=== PATIENT | female | born 1945 | race Caucasian/White ===

== ENCOUNTER 2016-07-04 08:49 | Emergency (ER) | payer MEDICARE ==
[~2016-07-04] VITALS: Ht 167.6 cm; Wt 90.7 kg
--- NOTE | 2016-07-04 08:53 | NUR ---
Pt bbra from home for left knee pain s/p fall this am. no loc or other trauma . VSS. Awaiting md order.
[2016-07-04] MEDS ORDERED: ONDANSETRON 4 MG TAB.RAPDIS ONE (09:04)
[2016-07-04] MEDS ORDERED: HYDROCODONE/APAP 5/325MG 1 EACH TABLET ONE (09:04)
--- NOTE | 2016-07-04 09:14 | NUR ---
VACUUM DRIER TENDER AT BEDSIDE
[2016-07-04] MEDS ORDERED: HYDROCODONE/APAP 5/325MG 1 EACH TABLET PO ONE (09:30)
[2016-07-04] MEDS ORDERED: ONDANSETRON 4 MG TAB.RAPDIS SL ONE (09:30)
[2016-07-04 10:48] VITALS: BP 135/68
--- NOTE | 2016-07-04 10:48 | NUR ---
Patient discharged to home in stable condition. Written and verbal after care instructions given. Patient verbalizes understanding of instruction.
== END 2016-07-04 10:48 | disposition home or self-care (01) ==
LOC: ER 08:51
DX: M25.562 Pain in left knee (principal); M25.561 Pain in right knee; M25.551 Pain in right hip; M25.552 Pain in left hip; E03.9 Hypothyroidism, unspecified; E78.5 Hyperlipidemia, unspecified; I10 Essential (primary) hypertension; J45.909 Unspecified asthma, uncomplicated; Z86.73 Personal history of transient ischemic attack (TIA), and cerebral infarction without residual deficits; Z88.6 Allergy status to analgesic agent; W01.0XXA Fall on same level from slipping, tripping and stumbling without subsequent striking against object, initial encounter; Y92.091 Bathroom in other non-institutional residence as the place of occurrence of the external cause; Y93.01 Activity, walking, marching and hiking; Y99.8 Other external cause status
CPT/HCPCS: 73502; 73503; 73564 ×2; 99284; A4606; Q0162; 73510-TC; Z7610

== ENCOUNTER 2022-01-15 09:07 | Inpatient (IN) | payer BC, MEDICARE ==
[~2022-01-15] VITALS: Ht 165.1 cm; Wt 111.6 kg
--- NOTE | 2022-01-15 09:13 | NUR ---
DR JEWELL W/ PT FOR ANASTASIYAAL
[2022-01-15] MEDS ORDERED: HYDROCODONE/APAP 10/325MG TABLET ONE ×2 (09:18→11:53)
[2022-01-15] MEDS ORDERED: HYDROCODONE/APAP 10/325MG TABLET PO ONE (09:30)
--- NOTE | 2022-01-15 09:34 | NUR ---
REVENUE INVESTIGATOR AT BEDSIDE FOR XRAY
[2022-01-15] MEDS ORDERED: MORPHINE SULFATE INJ 2 MG/ML DISP.SYRIN ONE (11:53)
[2022-01-15] MEDS ORDERED: MORPHINE SULFATE INJ 2 MG/ML DISP.SYRIN IV ONE (12:00)
--- NOTE | 2022-01-15 12:15 | NUR ---
COVID SWAB DONE AND SENT TO LAB
[2022-01-15] MEDS ORDERED: ALPR1TAB7 PO (12:23)
[2022-01-15] MEDS ORDERED: BUPR-54 PO (12:23)
[2022-01-15] MEDS ORDERED: BUPR1PAT23 TP (12:23)
[2022-01-15] MEDS ORDERED: ESCI20TA PO (12:23)
[2022-01-15] MEDS ORDERED: ASPI-992 PO (12:23)
[2022-01-15] MEDS ORDERED: ESZO3TAB39 PO (12:23)
[2022-01-15] MEDS ORDERED: DAPA10TA PO (12:23)
[2022-01-15] MEDS ORDERED: SACU1TAB PO (12:23)
[2022-01-15] MEDS ORDERED: GABA300C PO (12:23)
[2022-01-15] MEDS ORDERED: OMEP10CA5 PO (12:23)
[2022-01-15] MEDS ORDERED: TOPI100T PO (12:23)
[2022-01-15] MEDS ORDERED: ALBU6.7H9 INH (12:23)
[2022-01-15] MEDS ORDERED: LEVO150T8 PO (12:23)
[2022-01-15] MEDS ORDERED: TOPI50TA PO (12:23)
[2022-01-15] MEDS ORDERED: OXYC1TAB12 PO (12:23)
[2022-01-15] MEDS ORDERED: METO25TA4 PO (12:23)
[2022-01-15] MEDS ORDERED: ATOR80TA PO (12:23)
--- NOTE | 2022-01-15 12:33 | NUR ---
[facility] CALLED TESTER OPERATOR PAGED.
[2022-01-15 12:43] LABS: BASOPHILS % (AUTO) 0.4 % (0.0-2.0); EOSINOPHILS % (AUTO) 1.8 % (0.0-6.0); HEMATOCRIT 41 % (33-45); HEMOGLOBIN 12.9 g/dL (11.5-14.8); LYMPHOCYTES # (AUTO) 1.5 K/uL (0.8-4.8); LYMPHOCYTES % (AUTO) 22.7 % (20.0-44.0); MEAN CORPUSCULAR HGB CONC 32 g/dl (31.0-36.0); MEAN CORPUSCULAR VOLUME 101 fL (82-100); MONOCYTES # (AUTO) 1.3 K/uL (0.1-1.30); MONOCYTES % (AUTO) 19.9 % (2.0-12.0); NEUTROPHILS # (AUTO) 3.6 K/uL (1.8-8.9); NEUTROPHILS % (AUTO) 55.2 % (43.0-81.0); PLATELET COUNT (AUTO) 79 K/uL (150-450); RED BLOOD CELL COUNT(AUTO) 4.06 MIL/uL (4.0-5.2); WHITE BLOOD COUNT (AUTO) 6.5 K/uL (4.3-11.0)
--- NOTE | 2022-01-15 12:50 | NUR ---
DR JEWELL SPEAKING W/ DR. MONREAL
[2022-01-15 12:54] LABS: CALCIUM, SERUM 8.8 mg/dL (8.5-10.1); CREATININE 1.2 mg/dL (0.6-1.3); POTASSIUM 4.6 mmol/L (3.5-5.1)
[2022-01-15] MEDS ORDERED: Z GUARD REMEDY 4 OZ OINT TP PRN (13:30)
[2022-01-15] MEDS ORDERED: ONDANSETRON HCL/PF 4 MG/2 ML VIAL IVP PRN (13:30)
[2022-01-15] MEDS ORDERED: ACETAMINOPHEN 325 MG TABLET PO PRN (13:30)
[2022-01-15] MEDS ORDERED: MAG HYDROX/AL HYDROX/SIMETH 30 ML UDC PO PRN (13:30)
[2022-01-15] MEDS ORDERED: MAGNESIUM HYDROXIDE 30 ML UDC PO PRN (13:30)
--- NOTE | 2022-01-15 15:05 | NUR ---
CALLED [facility] [phone] X [phone] ADMISS[address] CLERK [address] FARIA.
[2022-01-15] MEDS ORDERED: Medication Not On Formulary EA (Oxycodone Hcl/Acetaminophen (Oxycodone-Apap 10-325 Mg Ta PO PRN (15:30)
[2022-01-15] MEDS ORDERED: ALBUTEROL FS 2.5 MG/3 ML VIAL.NEB NEB PRN (15:30)
[2022-01-15] MEDS ORDERED: HYDROCODONE/APAP 5/325MG TABLET ONE (16:57)
[2022-01-15] MEDS: HYDROCODONE/APAP 5/325MG TABLET PO PRN (17:00)
--- NOTE | 2022-01-15 17:43 | NUR ---
CALLED [facility] [phone] [facility] [address] GERARD BOURGEOIS SPEAKING WITH DR JEWELL.
--- NOTE | 2022-01-15 17:54 | NUR ---
room assigned 321.2, admitting aware
--- NOTE | 2022-01-15 18:32 | NUR ---
report given to estela valencia for xander.
--- NOTE | 2022-01-15 19:01 | NUR ---
PT TRANSFERRED TO 321 VIA GURNEY. WARM HANDOFF GIVEN TO RN ASSIGNED.
[2022-01-15] MEDS: MORPHINE SULFATE INJ 2 MG/ML DISP.SYRIN IV PRN (19:25)
--- NOTE | 2022-01-15 19:30 | NUR ---
MS RN OPENING NOTE RECEIVED PATIENT IN BED; AWAKE, ALERT AND ORIENTED X 3. ON ROOM AIR; TOLERATING WELL. BREATHING EVEN AND NONLABORED. NOT IN ANY FORM OF RESPIRATORY DISTRESS. DENIES ANY PAIN OR DISCOMFORT AT THIS TIME. WITH IV ACCESS AT LEFT ANTECUBITAL 20G; PATENT, INTACT AND SALINE LOCKED. ABLE TO MAKE NEEDS KNOWN. SAFETY PRECAUTIONS IMPLEMENTED: CALL LIGHT AND TABLE WITHIN REACH, SIDE RAILS UP X 2, BED IN LOWEST LOCKED POSITION. WILL CONTINUE TO MONITOR THROUGHOUT SHIFT.
[2022-01-15 20:00] VITALS: BP 145/65
[2022-01-15] MEDS: ATORVASTATIN 40 MG TABLET PO SCH (21:53)
[2022-01-15] MEDS: TOPIRAMATE 100 MG TABLET PO SCH (21:54)
[2022-01-15] MEDS: ENOXAPARIN SODIUM 40 MG/0.4 ML DISP.SYRIN SQ SCH (22:00)
[2022-01-15 22:48] VITALS: BP 145/65
[2022-01-16] MEDS: MORPHINE SULFATE INJ 2 MG/ML DISP.SYRIN IV PRN ×3 (00:11→21:50)
[2022-01-16 02:40] LABS: BAND % (MANUAL) 5 % (0.0-5.0); LYMPHOCYTES % (MANUAL) 35 % (16-48); NEUTROPHILS % (MANUAL) 55 (42-76)
[2022-01-16 02:41] LABS: BASOPHILS % (MANUAL) 0 % (0.0-2.0); EOSINOPHILS % (MANUAL) 0 % (0-4); MONOCYTES % (MANUAL) 5 % (0-11.0)
[2022-01-16 05:53] LABS: BASOPHILS % (AUTO) 0.2 % (0.0-2.0); EOSINOPHILS % (AUTO) 1.6 % (0.0-6.0); HEMATOCRIT 38 % (33-45); HEMOGLOBIN 12.2 g/dL (11.5-14.8); LYMPHOCYTES # (AUTO) 0.8 K/uL (0.8-4.8); LYMPHOCYTES % (AUTO) 10.8 % (20.0-44.0); MEAN CORPUSCULAR HGB CONC 32 g/dl (31.0-36.0); MEAN CORPUSCULAR VOLUME 101 fL (82-100); MONOCYTES # (AUTO) 3.2 K/uL (0.1-1.30); MONOCYTES % (AUTO) 41.2 % (2.0-12.0); NEUTROPHILS # (AUTO) 3.6 K/uL (1.8-8.9); NEUTROPHILS % (AUTO) 46.2 % (43.0-81.0); PLATELET COUNT (AUTO) 62 K/uL (150-450); RED BLOOD CELL COUNT(AUTO) 3.82 MIL/uL (4.0-5.2); WHITE BLOOD COUNT (AUTO) 7.7 K/uL (4.3-11.0)
[2022-01-16 06:24] LABS: CREATININE 1.1 mg/dL (0.6-1.3); MAGNESIUM 2.2 mg/dL (1.8-2.4); PHOSPHORUS 3.8 mg/dL (2.5-4.9); POTASSIUM 4.3 mmol/L (3.5-5.1)
--- NOTE | 2022-01-16 07:00 | NUR ---
MS RN CLOSING NOTE PATIENT IN BED; AWAKE, A/O X 3. STABLE ON ROOM AIR. BREATHING EQUAL AND UNLABORED. IN NO ACUTE DISTRESS. DENIES ANY PAIN OR DISCOMFORT AT THIS TIME. WITH IV ACCESS AT LEFT ANTECUBITAL 20G; PATENT, INTACT AND SALINE LOCKED. SAFETY PRECAUTIONS MAINTAINED: CALL LIGHT AND TABLE WITHIN REACH, SIDE RAILS UP X 2, BED IN LOWEST LOCKED POSITION. ENDORSED TO MORNING SHIFT FOR MAXIMILIANO.
[2022-01-16 08:00] VITALS: BP 123/70
[2022-01-16] MEDS: GABAPENTIN 300 MG CAPSULE PO SCH ×2 (09:00→13:00)
[2022-01-16] MEDS: ASPIRIN 325 MG TABLET PO SCH (09:46)
[2022-01-16] MEDS: LEVOTHYROXINE SODIUM 75 MCG TABLET PO SCH (09:46)
[2022-01-16] MEDS: BUPROPION XL 150 MG TAB.ER.24 PO SCH (09:47)
[2022-01-16] MEDS: ESCITALOPRAM OXALATE (10 MG) 10 MG TABLET PO SCH (09:47)
[2022-01-16] MEDS: PANTOPRAZOLE 40 MG TABLET.DR PO SCH (09:47)
[2022-01-16] MEDS: TOPIRAMATE 25 MG TABLET PO SCH (09:48)
[2022-01-16] MEDS: METOPROLOL SUCCINATE 25 MG TAB.SR.24H PO SCH (09:54)
[2022-01-16] MEDS: DAPAGLIFLOZIN PROPANEDIOL 5 MG TABLET PO SCH (09:54)
[2022-01-16] MEDS: SACUBITRIL/VALSARTAN 1 EACH TABLET PO SCH ×2 (09:56→18:06)
[2022-01-16 11:46] LABS: BAND % (MANUAL) 2 % (0.0-5.0); EOSINOPHILS % (MANUAL) 1 % (0-4); NEUTROPHILS % (MANUAL) 48 (42-76)
[2022-01-16 11:47] LABS: LYMPHOCYTES % (MANUAL) 9 % (16-48); MONOCYTES % (MANUAL) 40 % (0-11.0)
[2022-01-16 16:00] VITALS: BP 127/70
--- NOTE | 2022-01-16 19:20 | NUR ---
MS RN OPENING NOTE RECEIVED PATIENT IN BED; AWAKE, ALERT AND ORIENTED X 3. PATIEPATIENT . DENIES OF HAVING ANY PAIN OR DISCOMFORT AT THIS MOMENT. IV ACCESS IS AT LEFT ANTECUBITAL, # 20G; SL. FLUSHED WITH 10 CC OF NS, PATENT AND INTACT. PATIENT IS ABLE TO MAKE NEEDS KNOWN. LEFT LOWER LEG AND FOOT DRESS IS DRY, PATENT, AND INTACT. SAFETY PRECAUTIONS IMPLEMENTED: CALL LIGHT AND TABLE WITHIN REACH, SIDE RAILS UP X 2, BED IN LOWEST AND LOCKED POSITION. WILL CONTINUE TO MONITOR THE PATIENT THROUGHOUT SHIFT.
[2022-01-16 20:00] VITALS: BP 119/47
[2022-01-16] MEDS: ENOXAPARIN SODIUM 40 MG/0.4 ML DISP.SYRIN SQ SCH (20:00)
[2022-01-16 20:10] VITALS: BP 144/69
--- NOTE | 2022-01-16 20:43 | NUR ---
MS RN NOTE PATIENT HAS SCHEDULED MEDICATION LOVENOX 40 MG DUE AT 1999. PATIENT HAS LOW PLATELETS AT 62 (AM LAB RESULT ON 01/16). IT WAS 79 (AM LAB RESULT ON 01/15). PATIENT IS SCHEDULED FOR ORIF ON 01/18/2022. TEXT MD RADHA Panchal AND NOTIFIED HER PATIENT'S CONDITION. RECEIVED MD ORDER TO HOLD THE DOSE DUE TONIGHT. CHARGE NURSE, TRINITY, NOTIFIED.
[2022-01-16] MEDS: ATORVASTATIN 40 MG TABLET PO SCH (21:28)
[2022-01-16] MEDS: TOPIRAMATE 100 MG TABLET PO SCH (21:28)
[2022-01-16] MEDS: ZOLPIDEM TARTRATE 5 MG TABLET PO PRN (21:50)
[2022-01-16] MEDS ORDERED: LUNESTA 3 MG PO PRN (22:00)
[2022-01-17] MEDS: MORPHINE SULFATE INJ 2 MG/ML DISP.SYRIN IV PRN ×4 (04:49→21:40)
[2022-01-17 07:00] VITALS: BP 124/61
--- NOTE | 2022-01-17 07:08 | NUR ---
MS RN CLOSING NOTE PATIENT IS IN BED; AO X 3. PATIENT DENIES OF HAVING ANY PAIN OR DISCOMFORT AT THIS MOMENT. IV ACCESS IS AT LEFT ANTECUBITAL, # 20G; SL. FLUSHED WITH 10 CC OF NS, PATENT AND INTACT. PATIENT IS ABLE TO MAKE NEEDS KNOWN THROUGH THE SHIFT. LEFT LOWER LEG AND FOOT DRESS IS DRY, PATENT, AND INTACT. SAFETY PRECAUTIONS IMPLEMENTED: CALL LIGHT AND TABLE WITHIN REACH, SIDE RAILS UP X 2, BED IN LOWEST AND LOCKED POSITION. WILL ENDORSE THE NEXT SHIFT NURSE FOR CONTINUING PATIENT CARE.
[2022-01-17 07:56] LABS: BASOPHILS % (AUTO) 0.2 % (0.0-2.0); EOSINOPHILS % (AUTO) 1.1 % (0.0-6.0); HEMATOCRIT 37 % (33-45); LYMPHOCYTES # (AUTO) 1.1 K/uL (0.8-4.8); LYMPHOCYTES % (AUTO) 13.3 % (20.0-44.0); MEAN CORPUSCULAR HGB CONC 33 g/dl (31.0-36.0); MEAN CORPUSCULAR VOLUME 100 fL (82-100); MONOCYTES # (AUTO) 3.9 K/uL (0.1-1.30); MONOCYTES % (AUTO) 47.2 % (2.0-12.0); NEUTROPHILS # (AUTO) 3.1 K/uL (1.8-8.9); NEUTROPHILS % (AUTO) 38.2 % (43.0-81.0); PLATELET COUNT (AUTO) 61 K/uL (150-450); RED BLOOD CELL COUNT(AUTO) 3.68 MIL/uL (4.0-5.2); WHITE BLOOD COUNT (AUTO) 8.2 K/uL (4.3-11.0)
[2022-01-17 08:01] LABS: ALBUMIN 3.7 g/dL (3.4-5.0); BILIRUBIN,TOTAL 0.6 mg/dL (0.2-1.0); MAGNESIUM 2.2 mg/dL (1.8-2.4); PHOSPHORUS 2.9 mg/dL (2.5-4.9); POTASSIUM 4.3 mmol/L (3.5-5.1); TOTAL PROTEIN, SERUM 6.4 g/dL (6.4-8.2)
[2022-01-17] MEDS: DAPAGLIFLOZIN PROPANEDIOL 5 MG TABLET PO SCH (09:00)
[2022-01-17] MEDS: GABAPENTIN 300 MG CAPSULE PO SCH ×5 (09:00→17:29)
[2022-01-17] MEDS: LEVOTHYROXINE SODIUM 75 MCG TABLET PO SCH (10:46)
[2022-01-17] MEDS: ASPIRIN 325 MG TABLET PO SCH (11:07)
[2022-01-17] MEDS: ESCITALOPRAM OXALATE (10 MG) 10 MG TABLET PO SCH (11:07)
[2022-01-17] MEDS: METOPROLOL SUCCINATE 25 MG TAB.SR.24H PO SCH (11:07)
[2022-01-17] MEDS: TOPIRAMATE 25 MG TABLET PO SCH (11:08)
[2022-01-17] MEDS: PANTOPRAZOLE 40 MG TABLET.DR PO SCH (11:08)
[2022-01-17] MEDS: BUPROPION XL 150 MG TAB.ER.24 PO SCH (11:08)
[2022-01-17] MEDS: SACUBITRIL/VALSARTAN 1 EACH TABLET PO SCH ×2 (11:09→16:49)
[2022-01-17] MEDS: HYDROCODONE/APAP 5/325MG TABLET PO PRN ×2 (11:27→16:45)
[2022-01-17 12:42] LABS: LYMPHOCYTES % (MANUAL) 10 % (16-48); MONOCYTES % (MANUAL) 44 % (0-11.0); NEUTROPHILS % (MANUAL) 46 (42-76)
--- NOTE | 2022-01-17 19:05 | NUR ---
MS RN OPENING NOTE PATIENT IS LYING IN BED; AWAKE, ALERT AND ORIENTED X 3. PATIENT DENIES OF HAVING ANY PAIN OR DISCOMFORT AT THIS MOMENT. IV ACCESS IS AT LEFT ANTECUBITAL, # 20G; SL. FLUSHED WITH 10 CC OF NS, PATENT AND INTACT. LEFT LOWER LEG AND FOOT DRESS IS DRY, PATENT, AND INTACT. EDUCATED THE PATIENT THAT SHE IS GOING TO BE ON NPO AFTER MIDNIGHT FOR TOMORROW'S SCHEDULED SURGERY. PATIENT VERBALIZED UNDERSTANDING. PER CHANGE SHIFT REPORT, PATIENT'S CONSENT HAS NOT BEEN SIGNED BECAUSE PATIENT'S DAUGHTER, SARAH, WANTED TO KNOW FURTHER DETAILS ABOUT THE SURGERY. ACCORDING TO DAY SHIFT NURSE, SARAH STATED SHE LIVED CLOSELY AND WOULD COME TO VISIT HER MOTHER TOMORROW MORNING. SAFETY PRECAUTIONS IMPLEMENTED: CALL LIGHT AND TABLE WITHIN REACH, SIDE RAILS UP X 2, BED IN LOWEST AND LOCKED POSITION. WILL CONTINUE TO MONITOR THE PATIENT THROUGHOUT SHIFT.
--- NOTE | 2022-01-17 19:34 | NUR ---
REF: Consent Spoke with Patient's daughter Cassie who stated that she got a call from Lacey Elliott telling her that her Mother will have surgery but that is all. Cassie wants to be called at [phone] and explained the details before the consent is signed. She said she lives very close by and can be here early in the morning.
[2022-01-17] MEDS: ENOXAPARIN SODIUM 40 MG/0.4 ML DISP.SYRIN SQ SCH (20:00)
--- NOTE | 2022-01-17 20:15 | NUR ---
MS RN NOTE PATIENT HAS SCHEDULED MEDICATION LOVENOX 40 MG DUE AT 1999. PATIENT HAS LOW PLATELETS AT 61 (AM LAB RESULT ON 01/17). IT WAS 62 (AM LAB RESULT ON 01/16). PATIENT IS SCHEDULED FOR ORIF ON 01/18/2022. TEXT MD RADHA Panchal AND NOTIFIED HER PATIENT'S CONDITION. RECEIVED MD ORDER TO HOLD THE DOSE DUE TONIGHT. CHARGE NURSE, TRINITY, NOTIFIED.
[2022-01-17 21:04] VITALS: BP 109/51
[2022-01-17] MEDS: ZOLPIDEM TARTRATE 5 MG TABLET PO PRN (21:39)
[2022-01-17] MEDS: TOPIRAMATE 100 MG TABLET PO SCH (21:39)
[2022-01-17] MEDS: ATORVASTATIN 40 MG TABLET PO SCH (21:39)
[2022-01-18] VITALS (7 sets, daily range): BP systolic 104–146; BP diastolic 41–77
[2022-01-18] MEDS: MORPHINE SULFATE INJ 2 MG/ML DISP.SYRIN IV PRN ×2 (05:49→16:45)
[2022-01-18 06:05] LABS: BASOPHILS % (AUTO) 0.2 % (0.0-2.0); EOSINOPHILS % (AUTO) 0.8 % (0.0-6.0); HEMATOCRIT 34 % (33-45); LYMPHOCYTES # (AUTO) 1.2 K/uL (0.8-4.8); LYMPHOCYTES % (AUTO) 13.2 % (20.0-44.0); MEAN CORPUSCULAR HGB CONC 32 g/dl (31.0-36.0); MEAN CORPUSCULAR VOLUME 101 fL (82-100); MONOCYTES # (AUTO) 4.4 K/uL (0.1-1.30); MONOCYTES % (AUTO) 50.5 % (2.0-12.0); NEUTROPHILS # (AUTO) 3.1 K/uL (1.8-8.9); NEUTROPHILS % (AUTO) 35.3 % (43.0-81.0); PLATELET COUNT (AUTO) 59 K/uL (150-450); WHITE BLOOD COUNT (AUTO) 8.8 K/uL (4.3-11.0)
[2022-01-18 06:22] LABS: ALBUMIN 3.3 g/dL (3.4-5.0); BILIRUBIN,TOTAL 0.4 mg/dL (0.2-1.0); MAGNESIUM 2.1 mg/dL (1.8-2.4); PHOSPHORUS 3.2 mg/dL (2.5-4.9); POTASSIUM 4.4 mmol/L (3.5-5.1); TOTAL PROTEIN, SERUM 6.2 g/dL (6.4-8.2)
--- NOTE | 2022-01-18 07:00 | NUR ---
MS RN OPENING NOTES: RECEIVED PATIENT IN BED AWAKE, ALERT AND ORIENTED X 4. NO SOB OR CARDIAC DISTRESS NOTED, DENIES PAIN AT THIS TIME. IV ACCESS ON LAC GAUGE 20 PATENT, INTACT AND SL. MAINTAINED NPO. SAFETY MEASURES MAINTAINED: BED LOCKED AND IN LOWEST POSITION, SIDE RAILS UP X 3, CALL LIGHT AND BED SIDE TABLE IN EASY REACH AND WILL MONITOR PT ACCORDINGLY.
--- NOTE | 2022-01-18 07:09 | NUR ---
MS RN CLOSING NOTE PATIENT IS IN BED; AO X 3. PATIENT DENIES OF HAVING ANY PAIN OR DISCOMFORT AT THIS MOMENT. IV ACCESS IS AT LEFT ANTECUBITAL, # 20G; SL. FLUSHED WITH 10 CC OF NS, PATENT AND INTACT. PATIENT IS ABLE TO MAKE NEEDS KNOWN THROUGH THE SHIFT. LEFT LOWER LEG AND FOOT DRESS IS DRY, PATENT, AND INTACT. CONSENT FORMS FOR SURGERY ARE IN THE CHART READY TO BE SIGNED BY THE PATIENT / HER DAUGHTER. SAFETY PRECAUTIONS IMPLEMENTED: CALL LIGHT AND TABLE WITHIN REACH, SIDE RAILS UP X 2, BED IN LOWEST AND LOCKED POSITION. WILL ENDORSE THE NEXT SHIFT NURSE FOR CONTINUING PATIENT CARE.
[2022-01-18 08:23] LABS: BAND % (MANUAL) 2 % (0.0-5.0); LYMPHOCYTES % (MANUAL) 14 % (16-48); MONOCYTES % (MANUAL) 50 % (0-11.0); NEUTROPHILS % (MANUAL) 34 (42-76)
[2022-01-18] MEDS: LEVOTHYROXINE SODIUM 75 MCG TABLET PO SCH (09:00)
[2022-01-18] MEDS: FARXIGA 10 MG PO SCH (09:00)
[2022-01-18] MEDS: GABAPENTIN 300 MG CAPSULE PO SCH ×3 (09:00→17:09)
[2022-01-18] MEDS: ASPIRIN 325 MG TABLET PO SCH (09:00)
[2022-01-18] MEDS: TOPIRAMATE 25 MG TABLET PO SCH (09:00)
[2022-01-18] MEDS: ESCITALOPRAM OXALATE (10 MG) 10 MG TABLET PO SCH (09:00)
[2022-01-18] MEDS: METOPROLOL SUCCINATE 25 MG TAB.SR.24H PO SCH (09:00)
[2022-01-18] MEDS: PANTOPRAZOLE 40 MG TABLET.DR PO SCH (09:00)
[2022-01-18] MEDS: SACUBITRIL PO SCH ×2 (09:00→17:12)
[2022-01-18] MEDS: VALSARTAN PO SCH ×2 (09:00→17:12)
[2022-01-18] MEDS: BUPROPION XL 150 MG TAB.ER.24 PO SCH (09:00)
--- NOTE | 2022-01-18 09:56 | NUR ---
RN NOTES: MORNING MEDS NOT GIVEN, PT ON NPO FOR SURGERY.
[2022-01-18] MEDS ORDERED: BUPIVACAINE 0.5 % PF 150 MG/30 ML VIAL ONE (11:21)
[2022-01-18] MEDS ORDERED: LIDOCAINE 1% INJ 50 ML MDV IJ ONE (11:21)
[2022-01-18] MEDS ORDERED: VANCOMYCIN 1 GM VIAL ONE (11:21)
--- NOTE | 2022-01-18 12:35 | NUR ---
RN NOTES: PATIENT WAS PICKED UP GOING TO SURGERY, PATIENT STABLE. ACCOMPANIED BY OR NURSE AND FAMILY. PT LEFT THE UNIT STABLE.
[2022-01-18] MEDS ORDERED: FENTANYL PF 100MCG/2ML AMPUL ONE ×3 (12:47→15:24)
[2022-01-18] MEDS ORDERED: ROCURONIUM BROMIDE 50 MG/5 ML ONE (12:47)
[2022-01-18] MEDS ORDERED: GLYCOPYRROLATE 0.2 MG/ML VIAL ONE (12:50)
[2022-01-18] MEDS ORDERED: DEXAMETHASONE SOD PHOSPHATE 4 MG/ML VIAL ONE (12:50)
[2022-01-18] MEDS ORDERED: SUCCINYLCHOLINE CHLORIDE 20 MG/ML VIAL ONE (12:50)
--- NOTE | 2022-01-18 13:00 | NUR ---
RN NOTES: DUE MEDS @1300 NOT GIVEN PT CURRENTLY ON OPERATING ROOM.
--- NOTE | 2022-01-18 16:25 | NUR ---
RN NOTES: S/P LEFT ANKLE ORIF. PATIENT ACCOMPANIED BY RN CAT AND FAMILY VIA BED. PT ALERT AND ORIENTED X 4 AND NO SOB OR CARDIAC DISTRESS NOTED. VS WNL. NOTED WITH CEMENT LEFT FOOT AND COVERED WITH GHISLAINE WRAP WITH GOOD CAPILLARY REFILL PT ABLE TO MOVE TOES FREELY. ORDERS NOTED: RESUME ORDERS, ADVANCE DIET, ANCEF 2 GRAMS IVPB EVERY 8HRS STARTED 1 DOSE IN OR 1333PM X 3 DOSES, LOVENOX 40MG SQ DAILY START / IF HGB >9, NWB BLE. ALL ORDERS NOTED AND CARRIED OUT. PROVIDED PT ICE CHIPS, FAMILY AT BED SIDE. WILL MONITOR ACCORDINGLY.
--- NOTE | 2022-01-18 19:00 | NUR ---
MS RN CLOSING NOTES: PATIENT IN BED AWAKE, CALM BUT HAD EPISODES OF BEING CONFUSED AND FORGETFUL. PT NEEDS FREQUENT REORIENTATION AND REDIRECTION.NO SOB OR CARDIAC DISTRESS NOTED. DENIES PAIN AT THIS TIME. IV ACCESS ON L HAND AND R HAND GAUGE 20 PATENT, INTACT AND INFUSING NS @75ML/HR. BILATERAL SOFT RESTRAINT STAND BY. ABDUCTION PILLOW NOTED, DRESSING ON LEFT HIP NOTED. FC PATENT AND DRAINING CLEAR YELLOW COLORED URINE BY GRAVITY.SAFETY MEASURES MAINTAINED:BED LOCKED AND IN LOWEST POSITION, SIDE RAILS UP X 3. CALL LIGHT IN EASY REACH AND WILL ENDORSE TO MILITARY SCIENCE INSTRUCTOR RN FOR CONTINUITY OF CARE.
--- NOTE | 2022-01-18 19:30 | NUR ---
MS RN OPENING NOTE RECEIVED PATIENT IN BED, AWAKE, ALERT AND ORIENTED X4 WITH SISTER AT BEDSIDE. AFEBRILE AND NOT IN ANY FORM OF ACUTE DISTRESS. BREATHING EVEN AND NON LABORED. NO C/O PAIN OR DISCOMFORT AT THIS TIME. WITH DRESSING ON L LEG, INTACT AND NO BLEEDING NOTED. WITH IV ACCESS ON L AC 20G-SL. SAFETY MEASURES IN PLACE. KEPT BED IN LOCKED AND IN LOW POSITION. SIDE RAILS UP X2. ADVISED TO USE THE CALL LIGHT WHEN IN NEED OF ASSISTANCE.
[2022-01-18] MEDS: CEFAZOLIN 2 GM in IV D5W 100 ML IV SCH (20:15)
[2022-01-18] MEDS: ATORVASTATIN 40 MG TABLET PO SCH (21:29)
[2022-01-18] MEDS: TOPIRAMATE 100 MG TABLET PO SCH (21:29)
[2022-01-18] MEDS: HYDROCODONE/APAP 10/325MG TABLET PO PRN (22:54)
[2022-01-19] MEDS: CEFAZOLIN 2 GM in IV D5W 100 ML IV SCH ×2 (04:07→14:01)
[2022-01-19] MEDS: HYDROCODONE/APAP 10/325MG TABLET PO PRN (06:04)
[2022-01-19 06:15] LABS: ALBUMIN 2.9 g/dL (3.4-5.0); BILIRUBIN,TOTAL 0.3 mg/dL (0.2-1.0); CALCIUM, SERUM 8.7 mg/dL (8.5-10.1); MAGNESIUM 2.1 mg/dL (1.8-2.4); PHOSPHORUS 3.3 mg/dL (2.5-4.9); POTASSIUM 4.6 mmol/L (3.5-5.1)
[2022-01-19 06:16] LABS: HEMATOCRIT 33 % (33-45); HEMOGLOBIN 10.8 g/dL (11.5-14.8); LYMPHOCYTES # (AUTO) 0.6 K/uL (0.8-4.8); LYMPHOCYTES % (AUTO) 5.9 % (20.0-44.0); MEAN CORPUSCULAR HGB CONC 33 g/dl (31.0-36.0); MEAN CORPUSCULAR VOLUME 99 fL (82-100); MONOCYTES # (AUTO) 4.8 K/uL (0.1-1.30); MONOCYTES % (AUTO) 45.9 % (2.0-12.0); NEUTROPHILS # (AUTO) 5.1 K/uL (1.8-8.9); NEUTROPHILS % (AUTO) 48.2 % (43.0-81.0); PLATELET COUNT (AUTO) 57 K/uL (150-450); RED BLOOD CELL COUNT(AUTO) 3.33 MIL/uL (4.0-5.2); WHITE BLOOD COUNT (AUTO) 10.5 K/uL (4.3-11.0)
--- NOTE | 2022-01-19 06:30 | NUR ---
MS RN CLOSING NOTE PATIENT IN BED, ASLEEP BUT EASY TO AROUSE AND RESPONSIVE. AFEBRILE AND NOT IN ANY FORM OF ACUTE DISTRESS. BREATHING EVEN AND NON LABORED. WITH DRESSING ON L LEG, INTACT AND NO BLEEDING NOTED. WITH IV ACCESS ON L AC 20G-SL. CONTINUOUS ON IV ATB, MONITORED FOR ANY ADVERSE REACTION. TURNED AND REPOSITIONED EVERY 2 HOURS AND TOLERATED TO PROMOTE PROPER CIRCULATION AND COMFORT. SAFETY MEASURES IN PLACE. KEPT BED IN LOCKED AND IN LOW POSITION. SIDE RAILS UP X2. ADVISED TO USE THE CALL LIGHT WHEN IN NEED OF ASSISTANCE. CONSTANT VISUAL CHECK DONE TO ENSURE SAFETY. ALL NURSING NEEDS ATTENDED. ENDORSED TO INCOMING SHIFT FOR CONTINUITY OF CARE.
--- NOTE | 2022-01-19 07:17 | NUR ---
MS RN OPENING NOTES RECEIVED PATIENT AWAKE IN BED, A/Ox4. ON ROOM AIR, NO S/S OF RESPIRATORY DISTRESS. IV ACCESS LAC #20G S/L. INTACT AND PATENT. HAS PURWICK. ON BED REST, SKIN ISSUES: R AND L SKIN TEAR. SAFETY MEASURES IN PLACE: BED LOCKED AND IN LOWEST POSITION, SIDE RAILS UPx3, BED ALARM ON, HOB ELEVATED, CALL LIGHT WITHIN REACH. WILL CONTINUE TO MONITOR.
[2022-01-19 08:00] VITALS: BP 78/63
[2022-01-19] MEDS: METOPROLOL SUCCINATE 25 MG TAB.SR.24H PO SCH (09:00)
[2022-01-19] MEDS: VALSARTAN PO SCH ×2 (09:00→16:29)
[2022-01-19] MEDS: SACUBITRIL PO SCH ×2 (09:00→16:29)
[2022-01-19] MEDS ORDERED: ENOXAPARIN SODIUM 40 MG/0.4 ML DISP.SYRIN SQ SCH (09:00)
[2022-01-19] MEDS: ASPIRIN 325 MG TABLET PO SCH (09:31)
[2022-01-19] MEDS: ESCITALOPRAM OXALATE (10 MG) 10 MG TABLET PO SCH (09:31)
[2022-01-19] MEDS: GABAPENTIN 300 MG CAPSULE PO SCH ×3 (09:31→16:29)
[2022-01-19] MEDS: LEVOTHYROXINE SODIUM 75 MCG TABLET PO SCH (09:31)
[2022-01-19] MEDS: PANTOPRAZOLE 40 MG TABLET.DR PO SCH (09:31)
[2022-01-19] MEDS: BUPROPION XL 150 MG TAB.ER.24 PO SCH (09:32)
[2022-01-19] MEDS: TOPIRAMATE 25 MG TABLET PO SCH (09:32)
[2022-01-19] MEDS: FARXIGA 10 MG PO SCH (09:36)
[2022-01-19] MEDS ORDERED: oxyCODONE IR immediate release 5 MG PO ONE (10:05)
[2022-01-19] MEDS ORDERED: diphenhydrAMINE HCL 25 MG CAPSULE PO PRN (10:30)
--- NOTE | 2022-01-19 12:30 | NUR ---
RN NOTES PATIENT COMPLAINED OF PAIN, DR. MCCRACKEN ORDERED OXYCODONE Q3H PRN. PAIN MEDICATION ADMINISTERED WILL CONTINUE TO MONITOR.
[2022-01-19 16:00] VITALS: BP 99/47
[2022-01-19 16:03] LABS: LYMPHOCYTES % (MANUAL) 8 % (16-48); MONOCYTES % (MANUAL) 38 % (0-11.0); NEUTROPHILS % (MANUAL) 54 (42-76)
[2022-01-19] MEDS: oxyCODONE IR immediate release 5 MG PO PRN ×2 (16:29→20:44)
--- NOTE | 2022-01-19 17:27 | NUR ---
RN NOTES PATIENT COMPLAINED OF PAIN, ADMINISTERED OXYCODONE 5 MG FOR PAIN 08/16. WILL CONTINUE TO MONITOR.
--- NOTE | 2022-01-19 18:50 | NUR ---
RN NOTES DAUGHTER DROPPED OFF 4 FARXIGA, 4 LUNESTA, AND 8 SACUBITRIL REFILLS FOR PHARMACY, GIVEN TO PHARMACY AND WITNESSED BY TWO PHARMACY TECHS.
--- NOTE | 2022-01-19 18:59 | NUR ---
MS RN CLOSING NOTES PATIENT AWAKE IN BED, A/Ox4. ON 2 L OF O2, NO S/S OF RESPIRATORY DISTRESS. IV ACCESS LAC #20G S/L. INTACT AND PATENT. HAS PURWICK. ON BED REST, SKIN ISSUES: R AND L SKIN TEAR. SAFETY MEASURES MAINTAINED: BED LOCKED AND IN LOWEST POSITION, SIDE RAILS UPx3, BED ALARM ON, HOB ELEVATED, CALL LIGHT WITHIN REACH. WILL ENDORSE TO NEXT SHIFT ANY MAXIMILIANO.
--- NOTE | 2022-01-19 19:30 | NUR ---
RN OPENING NOTE PATIENT SITTING UP ON THE BED, DAUGHTER AT BEDSIDE. PATIENT IS A/O X 3 AT THIS TIME. PATIENT HAS A LAC 20 G PATENT AND INTACT, FLUSHING WELL. PATIENT DOES NOT REPORT ANY PAIN AT THIS TIME. PUREWICK CONNECTED TO WALL SUCTION, DRAINING YELLOW URINE. SAFETY MEASURES IN PLACE: BED LOCKED AND IN LOWEST POSITION, CALL LIGHT WITHIN REACH, SIDE RAILS UP. WILL MONITOR PATIENT CLOSELY.
[2022-01-19 20:00] VITALS: BP 107/57
--- NOTE | 2022-01-19 20:44 | NUR ---
RN NOTE PATIENT COMPLAINS OF 7/10 L ANKLE PAIN, OXY 1R 5 MG ADMINISTERED TO PATIENT.
[2022-01-19] MEDS: TOPIRAMATE 100 MG TABLET PO SCH (21:29)
[2022-01-19] MEDS: ATORVASTATIN 40 MG TABLET PO SCH (21:29)
--- NOTE | 2022-01-19 22:10 | NUR ---
LUNESTA ADMINISTERED PER PATIENT REQUEST TO HELP PATIENT SLEEP.
[2022-01-20] MEDS: oxyCODONE IR immediate release 5 MG PO PRN ×5 (06:00→17:40)
--- NOTE | 2022-01-20 07:15 | NUR ---
MS RN OPENING NOTES RECEIVED PATIENT AWAKE IN BED, A/Ox3-4 EPISODES OF FORGETFULNESS. ON ROOM AIR, NO S/S OF RESPIRATORY DISTRESS. IV ACCESS LAC #20G S/L. INTACT AND PATENT. HAS PURWICK. ON BED REST, SKIN ISSUES: R AND L SKIN TEAR. SAFETY MEASURES IN PLACE: BED LOCKED AND IN LOWEST POSITION, SIDE RAILS UPx3, BED ALARM ON, HOB ELEVATED, CALL LIGHT WITHIN REACH. WILL CONTINUE TO MONITOR.
--- NOTE | 2022-01-20 07:33 | NUR ---
RN CLOSING NOTE PATIENT SITTING UP ON THE BED, DAUGHTER AT BEDSIDE. PATIENT IS A/O X 3 AT THIS TIME. PATIENT HAS A LAC 20 G PATENT AND INTACT, FLUSHING WELL. PATIENT DOES NOT REPORT ANY PAIN AT THIS TIME. PUREWICK CONNECTED TO WALL SUCTION, DRAINING YELLOW URINE. PAIN MANAGED WITH OXY IR X 2. SAFETY MEASURES IN PLACE: BED LOCKED AND IN LOWEST POSITION, CALL LIGHT WITHIN REACH, SIDE RAILS UP. ALL NEEDS MET AND ATTENDED. ALL ORDERS CARRIED OUT. ENDORSED TO DAY SHIFT NURSE FOR MAXIMILIANO. Addendum: 01/20/22 at 0738 by GRZEGORZ CHILDERS RN CORRECTIONS MADE ON THE NEXT NOTE
--- NOTE | 2022-01-20 07:36 | NUR ---
RN CLOSING NOTE PATIENT LAYING IN BED, AWAKE. PATIENT IS A/O X 3 AT THIS TIME. PATIENT HAS A LAC 20 G PATENT AND INTACT, FLUSHING WELL. PATIENT DOES NOT REPORT ANY PAIN AT THIS TIME. PAIN MANAGED WITH OXY IR 5 MG X 2. PUREWICK CONNECTED TO WALL SUCTION, DRAINING YELLOW URINE. SAFETY MEASURES IN PLACE: BED LOCKED AND IN LOWEST POSITION, CALL LIGHT WITHIN REACH, SIDE RAILS UP. ALL NEEDS MET AND ATTENDED. ALL ORDERS CARRIED OUT. ENDORSED TO DAY SHIFT NURSE FOR MAXIMILIANO.
[2022-01-20] MEDS: TOPIRAMATE 25 MG TABLET PO SCH (09:24)
[2022-01-20] MEDS: ESCITALOPRAM OXALATE (10 MG) 10 MG TABLET PO SCH (09:24)
[2022-01-20] MEDS: BUPROPION XL 150 MG TAB.ER.24 PO SCH (09:25)
[2022-01-20] MEDS: LEVOTHYROXINE SODIUM 75 MCG TABLET PO SCH (09:25)
[2022-01-20] MEDS: GABAPENTIN 300 MG CAPSULE PO SCH ×3 (09:25→17:40)
[2022-01-20] MEDS: PANTOPRAZOLE 40 MG TABLET.DR PO SCH (09:25)
[2022-01-20] MEDS: METOPROLOL SUCCINATE 25 MG TAB.SR.24H PO SCH (09:26)
[2022-01-20] MEDS: SACUBITRIL PO SCH ×2 (09:32→17:41)
[2022-01-20] MEDS: VALSARTAN PO SCH ×2 (09:32→17:41)
[2022-01-20] MEDS: FARXIGA 10 MG PO SCH (09:32)
--- NOTE | 2022-01-20 10:00 | NUR ---
RN NOTES PATIENT COMPLAINED OF GENERALIZED PAIN AND SHARP PAIN OF THE L LEG. PRN OXYCODONE 5 MG 1 TAB ADMINISTERED. WILL CONTINUE TO MONITOR.
[2022-01-20] MEDS: ALPRAZOLAM 1 MG TABLET PO PRN (11:29)
--- NOTE | 2022-01-20 12:53 | NUR ---
RN NOTES PATIENT COMPLAINING OF PAIN, PRN OXYCODONE GIVEN. WILL CONTINUE TO MONITOR.
--- NOTE | 2022-01-20 18:48 | NUR ---
MS RN CLOSING NOTES RECEIVED PATIENT AWAKE IN BED, A/Ox4. STABLE ON ROOM AIR, NO S/S OF RESPIRATORY DISTRESS. IV ACCESS LAC #20G S/L. INTACT AND PATENT. HAS PURWICK. ON BED REST, SKIN ISSUES: R AND L SKIN TEAR. SAFETY MEASURES MAINTAINED: BED LOCKED AND IN LOWEST POSITION, SIDE RAILS UPx3, HOB ELEVATED, CALL LIGHT WITHIN REACH. WILL ENDORSE TO NEXT SHIFT ANY MAXIMILIANO.
--- NOTE | 2022-01-20 19:30 | NUR ---
MS RN OPENING NOTES RECEIVED PATIENT AWAKE IN BED, PATIENT IS A/Ox3-4 EPISODES OF FORGETFULNESS. ON ROOM AIR, NO S/S OF RESPIRATORY DISTRESS. IV ACCESS LAC #20G S/L. INTACT AND PATENT. HAS PURWICK. ON BED REST.ALL SAFETY MEASURES IN PLACE: BED LOCKED AND IN LOWEST POSITION, SIDE RAILS UPx3, BED ALARM ON, HOB ELEVATED, CALL LIGHT WITHIN REACH. WILL CONTINUE TO MONITOR.
[2022-01-20 20:00] VITALS: BP 109/53
[2022-01-20] MEDS: TOPIRAMATE 100 MG TABLET PO SCH (22:47)
[2022-01-20] MEDS: ATORVASTATIN 40 MG TABLET PO SCH (22:47)
[2022-01-21] MEDS: oxyCODONE IR immediate release 5 MG PO PRN ×3 (02:07→13:39)
[2022-01-21 06:39] LABS: BASOPHILS % (AUTO) 0.3 % (0.0-2.0); EOSINOPHILS % (AUTO) 0.8 % (0.0-6.0); HEMATOCRIT 31 % (33-45); HEMOGLOBIN 10.1 g/dL (11.5-14.8); LYMPHOCYTES # (AUTO) 1.3 K/uL (0.8-4.8); LYMPHOCYTES % (AUTO) 18.8 % (20.0-44.0); MEAN CORPUSCULAR HGB CONC 32 g/dl (31.0-36.0); MEAN CORPUSCULAR VOLUME 99 fL (82-100); MONOCYTES # (AUTO) 2.3 K/uL (0.1-1.30); MONOCYTES % (AUTO) 33.1 % (2.0-12.0); NEUTROPHILS # (AUTO) 3.3 K/uL (1.8-8.9); PLATELET COUNT (AUTO) 100 K/uL (150-450); RED BLOOD CELL COUNT(AUTO) 3.15 MIL/uL (4.0-5.2); WHITE BLOOD COUNT (AUTO) 7.1 K/uL (4.3-11.0)
--- NOTE | 2022-01-21 06:52 | NUR ---
MS RN CLOSING NOTES PATIENT AWAKE IN BED, PATIENT IS A/Ox3-4 EPISODES OF FORGETFULNESS. ON ROOM AIR, NO S/S OF RESPIRATORY DISTRESS. IV ACCESS LAC #20G S/L. INTACT AND PATENT. PURWICK IN PLACE . PATIENT HAD 1600 ML OUTPUT. ON BED REST. ALL DUE MEDS GIVEN ORDERED. ALL SAFETY MEASURES IN PLACE: BED LOCKED AND IN LOWEST POSITION, SIDE RAILS UPx3, BED ALARM ON, HOB ELEVATED, CALL LIGHT WITHIN REACH. WILL ENDORSE FOR MAXIMILIANO.
[2022-01-21 07:15] LABS: CALCIUM, SERUM 9.4 mg/dL (8.5-10.1); CREATININE 0.9 mg/dL (0.6-1.3); MAGNESIUM 2.1 mg/dL (1.8-2.4); PHOSPHORUS 3.3 mg/dL (2.5-4.9); POTASSIUM 4.4 mmol/L (3.5-5.1)
[2022-01-21 08:00] VITALS: BP 124/62
[2022-01-21] MEDS: GABAPENTIN 300 MG CAPSULE PO SCH ×3 (08:42→16:09)
[2022-01-21] MEDS: LEVOTHYROXINE SODIUM 75 MCG TABLET PO SCH (08:42)
[2022-01-21] MEDS: TOPIRAMATE 25 MG TABLET PO SCH (08:43)
[2022-01-21] MEDS: ESCITALOPRAM OXALATE (10 MG) 10 MG TABLET PO SCH (08:43)
[2022-01-21] MEDS: BUPROPION XL 150 MG TAB.ER.24 PO SCH (08:43)
[2022-01-21] MEDS: PANTOPRAZOLE 40 MG TABLET.DR PO SCH (08:43)
[2022-01-21] MEDS: SACUBITRIL PO SCH ×2 (08:49→16:09)
[2022-01-21] MEDS: VALSARTAN PO SCH ×2 (08:49→16:09)
[2022-01-21] MEDS: FARXIGA 10 MG PO SCH (08:49)
[2022-01-21] MEDS: METOPROLOL SUCCINATE 25 MG TAB.SR.24H PO SCH (08:50)
[2022-01-21 12:38] LABS: BAND % (MANUAL) 2 % (0.0-5.0); EOSINOPHILS % (MANUAL) 0 % (0-4); LYMPHOCYTES % (MANUAL) 13 % (16-48); MONOCYTES % (MANUAL) 29 % (0-11.0); NEUTROPHILS % (MANUAL) 56 (42-76)
[2022-01-21] MEDS ORDERED: OXYC5CAP18 PO (15:14)
[2022-01-21] MEDS ORDERED: ENOX40DI SQ (15:14)
[2022-01-21 16:00] VITALS: BP 113/56
--- NOTE | 2022-01-21 18:31 | NUR ---
END OF SHIFT SUMMARY PATIENT IS A/O X3, FORGETFUL. ON 02 AT 2 LPM VIA NC, SATURATING WELL. L AC #20 G SL, INTACT AND PATENT. PUREWICK IN PLACE, INCONTINENCE CARE PROVIDED. DRESSING C/D/I. ACCEPTED AT [facility]. AWAITING AUTH FROM THE INSURANCE. SAFTY MEASURES MAINTAINED. BED IN LOWEST POSITION, BRAKES LOCKED. SIDE RAILS UP X2. CALL LIGHT WITHIN REACH. WILL ENDORSE CONTINUITY OF CARE TO ONCOMING SHIFT.
--- NOTE | 2022-01-21 19:56 | NUR ---
MS RN OPENING NOTES; RECEIVED PATIENT AWAKE IN BED, ACCOMPANIED BY FAMILY, BED IN LOW POSITION, CALL LIGHTS WITHIN REACH, NO COMPLAIN OF PAIN AND DISCOMFORT AT THIS TIME, ON O2 INHALATION AT 2LPM SATURATING WELL NO SOB WAS OBSERVED, PATIENT IA A/OX3, FORGETFUL, ON PUREWICK- 50CC URINE OUTPUT, PATIENT IS S/P LEFT ORIF AT LEFT ANKLE NWB ON BLE, PATIENT KEPT CLEAN AND DRY ALL NEEDS MET WILL CONTINUE TO MONITOR.
[2022-01-21 20:00] VITALS: BP 113/53
[2022-01-21 21:12] VITALS: BP 113/43
[2022-01-21] MEDS: ATORVASTATIN 40 MG TABLET PO SCH (22:36)
[2022-01-21] MEDS: TOPIRAMATE 100 MG TABLET PO SCH (22:37)
[2022-01-21] MEDS: ALPRAZOLAM 1 MG TABLET PO PRN (22:44)
[2022-01-22 06:16] VITALS: BP 118/60
--- NOTE | 2022-01-22 06:30 | NUR ---
MS RN CLOSING NOTES: PATIENT SLEEP IN BED COMFORTABLY, AROUSABLE TO VERBAL STIMULI, BED IN LOW POSITION CALL LIGHTS WITHIN REACH, NO COMPLAIN OF PAIN AND DISCOMFORT AT THIS TIME ON ROOM AIR SATURATING WELL, PATIENT S/P L ANKLE ORIF NONE WEIGHT BEARING ON BILATERAL LOWER EXTREMITY, PATIENT KEPT CLEAN AND DRY ALL NEEDS MET ENDORSE TO INCOMING SHIFT.
[2022-01-22] MEDS: oxyCODONE IR immediate release 5 MG PO PRN (06:45)
[2022-01-22] MEDS: GABAPENTIN 300 MG CAPSULE PO SCH ×2 (08:36→12:13)
[2022-01-22 08:37] VITALS: BP 114/42
[2022-01-22] MEDS: METOPROLOL SUCCINATE 25 MG TAB.SR.24H PO SCH (08:37)
[2022-01-22] MEDS: ESCITALOPRAM OXALATE (10 MG) 10 MG TABLET PO SCH (08:37)
[2022-01-22] MEDS: LEVOTHYROXINE SODIUM 75 MCG TABLET PO SCH (08:37)
[2022-01-22] MEDS: PANTOPRAZOLE 40 MG TABLET.DR PO SCH (08:38)
[2022-01-22] MEDS: BUPROPION XL 150 MG TAB.ER.24 PO SCH (08:38)
[2022-01-22] MEDS: TOPIRAMATE 25 MG TABLET PO SCH (08:38)
[2022-01-22] MEDS: FARXIGA 10 MG PO SCH (08:39)
[2022-01-22] MEDS: VALSARTAN PO SCH (08:39)
[2022-01-22] MEDS: SACUBITRIL PO SCH (08:39)
[2022-01-22] MEDS ORDERED: ENOXAPARIN SODIUM 40 MG/0.4 ML DISP.SYRIN SQ SCH (09:00)
--- NOTE | 2022-01-22 13:22 | NUR ---
PATIENT IS A/O X3, FORGETFUL. PT IS CLEARED FOR DC. SHE IS GOING TO [facility], 10-A. TRANSPORTATION ARRANGED AT 1400. REPORT GIVEN TO WAQAR BEAULIEU. SARAH (DAUGHTER) MADE AWARE ABOUT DC PLAN. DISCHARGE INSTRUCTIONS GIVEN, BOTH PT AND DTR VERBALIZED UNDERSTANDING.
== END 2022-01-22 14:15 | DRG 493 ==
LOC: ER 09:19 → MED 18:55
PROVIDERS: ATTEND Nurse Practitioner Acute Care
PROC: 0QSK04Z Reposition Left Fibula with Internal Fixation Device, Open Approach (ICD-10-PCS; principal; 2022-01-18)
DX: S82.832A Other fracture of upper and lower end of left fibula, initial encounter for closed fracture (principal); C93.10 Chronic myelomonocytic leukemia not having achieved remission; I50.32 Chronic diastolic (congestive) heart failure; N17.9 Acute kidney failure, unspecified; Z68.41 Body mass index [BMI] 40.0-44.9, adult; M79.7 Fibromyalgia; S82.52XA Displaced fracture of medial malleolus of left tibia, initial encounter for closed fracture; W01.0XXA Fall on same level from slipping, tripping and stumbling without subsequent striking against object, initial encounter; Y92.003 Bedroom of unspecified non-institutional (private) residence as the place of occurrence of the external cause; I11.0 Hypertensive heart disease with heart failure; Z20.822 Contact with and (suspected) exposure to COVID-19; Z86.73 Personal history of transient ischemic attack (TIA), and cerebral infarction without residual deficits; E03.9 Hypothyroidism, unspecified; E78.00 Pure hypercholesterolemia, unspecified; E87.5 Hyperkalemia; Y93.01 Activity, walking, marching and hiking; Z88.5 Allergy status to narcotic agent; Z79.82 Long term (current) use of aspirin; Z79.51 Long term (current) use of inhaled steroids; Z79.899 Other long term (current) drug therapy; J45.909 Unspecified asthma, uncomplicated; Z87.891 Personal history of nicotine dependence; E66.01 Morbid (severe) obesity due to excess calories; G47.33 Obstructive sleep apnea (adult) (pediatric); Z85.118 Personal history of other malignant neoplasm of bronchus and lung; Z90.2 Acquired absence of lung [part of]; E78.5 Hyperlipidemia, unspecified; S92.354A Nondisplaced fracture of fifth metatarsal bone, right foot, initial encounter for closed fracture; Z79.891 Long term (current) use of opiate analgesic; G89.4 Chronic pain syndrome; F12.90 Cannabis use, unspecified, uncomplicated; D69.6 Thrombocytopenia, unspecified
CPT/HCPCS: 36415; 71045-TC; 73564-TC; 73610-TC; 73630-TC; 80048-TC; 80053-TC; 83735-TC; 84100-TC; 84484-TC; 85025-TC; 85610-TC; 85730-TC; 87081-TC; 93307-TC; 97110-TC; 97112-TC; 97530-TC; A6402; C1713; C9803; G0378; J0330; J0690; J1100; J1650; J2270; J2405; J2704; J3010; J3370; J3490; J7030; J7050; J7060

== ENCOUNTER 2022-01-29 17:59 | Inpatient (IN) | payer BC ==
[~2022-01-29] VITALS: Ht 165.1 cm; Wt 109.3 kg
[~2022-01-29 17:59] MED LIST: ALBU6.7H9 INH; ALPR1TAB7 PO; ASPI-992 PO; ATOR80TA PO; BUPR-54 PO; BUPR1PAT23 TP; DAPA10TA PO; ENOX40DI SQ; ESCI20TA PO; ESZO3TAB39 PO; GABA300C PO; LEVO150T8 PO; METO25TA4 PO; OMEP10CA5 PO; OXYC1TAB12 PO; OXYC5CAP18 PO; SACU1TAB PO; TOPI100T PO; TOPI50TA PO
--- NOTE | 2022-01-29 18:45 | NUR ---
MATT PA FROM [facility]ARE [facility], COUGHING TODAY, TESTED (+) TO COVID 19. PLACED ON BED, AAOX4, BREATHING EVEN AND UNLABORED SATURATING AT 97%RA.
--- NOTE | 2022-01-29 19:10 | NUR ---
BLOOD DRAWN AND SENT TO LAB
--- NOTE | 2022-01-29 19:26 | NUR ---
SWAB FOR COVID19 SENT TO LAB
--- NOTE | 2022-01-29 19:39 | NUR ---
MOVE SHEET SUBMITTED.
[2022-01-29 19:40] LABS: CALCIUM, SERUM 9.6 mg/dL (8.5-10.1); CARBON DIOXIDE 29 mmol/L (21-32); CHLORIDE 108 mmol/L (98-107); GLUCOSE 101 mg/dL (74-106); POTASSIUM 4.2 mmol/L (3.5-5.1); SODIUM SERUM 142 mmol/L (136-145); UREA NITROGEN, BLOOD 24 mg/dL (7-18)
[2022-01-29 19:46] LABS: ALANINE AMINOTRANSFERASE 28 U/L (12-78); ALBUMIN 3.2 g/dL (3.4-5.0); ALKALINE PHOSPHATASE 123 U/L (46-116); ASPARTATE AMINOTRANSFERASE 26 U/L (15-37); BILIRUBIN,DIRECT 0.1 mg/dL (0.0-0.2); BILIRUBIN,TOTAL 0.4 mg/dL (0.2-1.0); TOTAL PROTEIN, SERUM 6.7 g/dL (6.4-8.2)
[2022-01-29 19:56] LABS: BASOPHILS % (AUTO) 0.5 % (0.0-2.0); HEMATOCRIT 33 % (33-45); HEMOGLOBIN 10.6 g/dL (11.5-14.8); LYMPHOCYTES # (AUTO) 1.2 K/uL (0.8-4.8); LYMPHOCYTES % (AUTO) 15.3 % (20.0-44.0); MEAN CORPUSCULAR HGB CONC 32 g/dl (31.0-36.0); MEAN CORPUSCULAR VOLUME 99 fL (82-100); MONOCYTES # (AUTO) 3.9 K/uL (0.1-1.30); MONOCYTES % (AUTO) 51.2 % (2.0-12.0); NEUTROPHILS # (AUTO) 2.4 K/uL (1.8-8.9); PLATELET COUNT (AUTO) 211 K/uL (150-450); RED BLOOD CELL COUNT(AUTO) 3.36 MIL/uL (4.0-5.2); WHITE BLOOD COUNT (AUTO) 7.7 K/uL (4.3-11.0)
--- NOTE | 2022-01-29 21:06 | NUR ---
ROOM 104
--- NOTE | 2022-01-29 21:43 | NUR ---
REPORT GIVEN TO UMM REEVES RN FOR MAXIMILIANO
[2022-01-29 21:53] LABS: EOSINOPHILS % (MANUAL) 1 % (0-4); LYMPHOCYTES % (MANUAL) 35 % (16-48); MONOCYTES % (MANUAL) 30 % (0-11.0); NEUTROPHILS % (MANUAL) 33 (42-76); REACTIVE LYMPHOCYTES 1 % (0-0)
[2022-01-29 22:30] VITALS: BP 141/58
--- NOTE | 2022-01-29 23:00 | NUR ---
ADMISSION NOTE PATIENT BROUGHT IN UNIT AT AROUND 2218, ACCOMPANIED BY 2 ER PERSONNEL, VIA STRETCHER. PATIENT A/OX4. NO S/S OF APPARENT DISTRESS ON ROOM AIR. C/O 10 PAIN, PER PATIENT SHE HAS ACUTE FIBROMYALGIA AND HAD ANKLE SX JUST LAST WEEK HENCE PAIN IS GENERALIZED-- WILL MEDICATE. PATIENT WISHES TO BE FULL CODE. POLST IN CHART. READING SR IN TELE MONITOR WITH RAE. PER PATIENT SHE IS UP-TO-DATE WITH ALL HER IMMUNIZATIONS INCLUDING COVID. R. AC #20G NOTED TO BE INTACT AND PATENT-- ON SALINE LOCK. NEW ID BAND ON PATIENT. BELONGINGS CHECKED AND SIGNED FOR. PATIENT ORIENTED IN THE UNIT AND THE USE OF CALL LIGHT. SAFETY IN PLACE. WILL FOLLOW THROUGH DOCTOR'S ORDERS AND CONT. WITH PLAN OF CARE FOR PATIENT.
[2022-01-29] MEDS ORDERED: ONDANSETRON HCL/PF 4 MG/2 ML VIAL IVP PRN (23:30)
[2022-01-29] MEDS ORDERED: Z GUARD REMEDY 4 OZ OINT TP PRN (23:30)
[2022-01-29] MEDS ORDERED: ACETAMINOPHEN 325 MG TABLET PO PRN (23:30)
[2022-01-30] MEDS: TEMAZEPAM 7.5 MG CAPSULE PO PRN (00:07)
[2022-01-30] MEDS: ENOXAPARIN SODIUM 40 MG/0.4 ML DISP.SYRIN SQ SCH ×3 (00:07→21:56)
--- NOTE | 2022-01-30 01:22 | NUR ---
noc rn note patient c/o 10/10 generalized pain. messaged senior construction manager, Dr. Gomes for order. awaiting doctor's order.
--- NOTE | 2022-01-30 03:45 | NUR ---
noc rn note biodiesel operations manager ordered scheduled Gabapentin only, for pain. made patient aware and per patient "I will just try to close my eyes and sleep" but don't wanna be waken up when she falls asleep. Charge nurse, Gregoria perkins.
[2022-01-30] MEDS ORDERED: oxyCODONE/APAP (5/325 MG) 1 UDTAB TABLET PO PRN (05:30)
[2022-01-30] MEDS ORDERED: ENOXAPARIN SODIUM 40 MG/0.4 ML DISP.SYRIN SQ SCH (05:30)
--- NOTE | 2022-01-30 06:10 | NUR ---
noc rn note- omnicell discrepancy asked patient again about pain and offered the pain medicine. patient was still in pain and wanting medication since educational assistant teacher ordered at 0530 and was not verified by pharmacy by around 0600, pulled out med percocet 10 (x2 5mg tablet) and when I was about to scan patient changed her mind and to quote "I probably should not take it on an empty stomach" "I will take it later on after breakfast". Made patient aware that I have to return the medication right away, patient agreeable. 2 unopened UDTAB of percocet 5 returned in the omnicell with WAQAR Osuna to witness.
--- NOTE | 2022-01-30 07:04 | NUR ---
noc rn closing note patient resting in bed at this time. no s/s of apparent distress on room air. refused pain medicine this am. no fluids running at this time. patient needs attended. all scheduled medication administered. Isolation in place, strictly followed. call light within reach. safety in place. Endorsed to WAQAR Reddy for continuity of patient care.
[2022-01-30] MEDS ORDERED: PANTOPRAZOLE 40 MG/PACK PACK GT SCH (07:30)
--- NOTE | 2022-01-30 07:40 | NUR ---
RN OPENING NOTE PT A/OX4. NO S/S OF APPARENT DISTRESS ON ROOM AIR. PT ON TELE MONITOR SR RHYTHM 59. PT HAS R AC 20 GUAGE. IV PATENT, FLUSHING WELL AND INTACT. PT HAS RECENT SURGERY OF LEFT ANKLE FRACTURE. DRESSING INTACT, WITH GHISLAINE WRAP. ALL SAFETY MEASURES IN PLACE. BED LOCKED AT LOWEST POSITION. SIDE RAILS UP X2. BED ALARM ON.
[2022-01-30 08:00] VITALS: BP 124/67
[2022-01-30] MEDS: LEVOTHYROXINE SODIUM 75 MCG TABLET PO SCH (08:09)
[2022-01-30] MEDS: TOPIRAMATE 25 MG TABLET PO SCH (08:09)
[2022-01-30] MEDS: ASPIRIN 325 MG TABLET PO SCH (08:09)
[2022-01-30] MEDS: GABAPENTIN 300 MG CAPSULE PO SCH ×3 (08:09→16:51)
[2022-01-30] MEDS: BUPROPION XL 150 MG TAB.ER.24 PO SCH (08:10)
[2022-01-30 08:36] LABS: CREATININE 0.9 mg/dL (0.6-1.3); MAGNESIUM 2.3 mg/dL (1.8-2.4); PHOSPHORUS 3.2 mg/dL (2.5-4.9); POTASSIUM 3.8 mmol/L (3.5-5.1)
[2022-01-30 08:38] LABS: BASOPHILS % (AUTO) 0.4 % (0.0-2.0); EOSINOPHILS % (AUTO) 2.5 % (0.0-6.0); HEMATOCRIT 32 % (33-45); HEMOGLOBIN 10.4 g/dL (11.5-14.8); LYMPHOCYTES % (AUTO) 17.8 % (20.0-44.0); MEAN CORPUSCULAR HGB CONC 32 g/dl (31.0-36.0); MEAN CORPUSCULAR VOLUME 98 fL (82-100); MONOCYTES # (AUTO) 2.8 K/uL (0.1-1.30); MONOCYTES % (AUTO) 48.8 % (2.0-12.0); NEUTROPHILS # (AUTO) 1.7 K/uL (1.8-8.9); NEUTROPHILS % (AUTO) 30.5 % (43.0-81.0); PLATELET COUNT (AUTO) 194 K/uL (150-450); RED BLOOD CELL COUNT(AUTO) 3.31 MIL/uL (4.0-5.2); WHITE BLOOD COUNT (AUTO) 5.7 K/uL (4.3-11.0)
[2022-01-30] MEDS ORDERED: ASPI-1169 PO (08:41)
[2022-01-30] MEDS ORDERED: MENT3.5O TP (08:41)
[2022-01-30] MEDS ORDERED: OXYC5TAB3 PO (08:41)
--- NOTE | 2022-01-30 08:45 | NUR ---
rn note returned lexapro to [facility]
--- NOTE | 2022-01-30 08:45 | NUR ---
rn note returned protonix pack to [facility]. called pharmacy to switch to oral form called pharmacy to change lexapro to evening per patient request
[2022-01-30 09:00] VITALS: BP 124/67
[2022-01-30] MEDS ORDERED: ESCITALOPRAM OXALATE (10 MG) 10 MG TABLET PO SCH (09:00)
[2022-01-30] MEDS: PANTOPRAZOLE 40 MG TABLET.DR PO SCH (09:13)
[2022-01-30] MEDS: oxyCODONE/APAP (5/325 MG) 1 UDTAB TABLET PO PRN ×3 (09:14→21:55)
[2022-01-30] MEDS: METOPROLOL SUCCINATE 25 MG TAB.SR.24H PO SCH (09:14)
--- NOTE | 2022-01-30 10:59 | NUR ---
RN NOTE NOTIFIED DR. WINSTON THAT PT DAUGHTER WOULD LIKE ANTIVIRAL MEDICATIONS. DR. WINSTON SAID PAXLOVID CAN NOT BE GIVEN IN HOSPITAL
--- NOTE | 2022-01-30 11:06 | NUR ---
pt had surgery last week on left ankle. surgical dressing covered with mouna wrap Addendum: 01/30/22 at 1107 by KODI ELIZONDO RN Amended: Links added.
[2022-01-30 13:00] VITALS: BP 117/56
[2022-01-30 17:00] VITALS: BP_SYST 117; BP_SYST 98; BP_DIAS 53; BP_DIAS 56
--- NOTE | 2022-01-30 17:00 | NUR ---
rn note pt daughter bought home medications. dropped off home meds to pharmacy and given to pharmacist
--- NOTE | 2022-01-30 17:21 | NUR ---
rn note pt requesting medication for constipation, notified dr. fang and ordered dulcolox supp 10 pr daily and sennakot 1 tab po q hs.orders noted and carried out
[2022-01-30 18:04] LABS: BAND % (MANUAL) 1 % (0.0-5.0); LYMPHOCYTES % (MANUAL) 27 % (16-48); MONOCYTES % (MANUAL) 34 % (0-11.0); NEUTROPHILS % (MANUAL) 38 (42-76)
[2022-01-30] MEDS ORDERED: BISACODYL SUPP (10 MG) 10 MG/SUPP.RECT SUPP.RECT RC PRN (19:30)
--- NOTE | 2022-01-30 19:31 | NUR ---
RN CLOSING NOTE PT A/OX4. NO COMPLAINTS OF PAIN OR DISCOMFORT NOTED AT THIS TIME. PATIENT ON ROOM AIR TOLERATING WELL AT ABOVE 92%.. PT ON TELE MONITOR SR RHYTHM 63 WITH PERIODS OF BIGEMINY. PT HAS R AC 20 GAUGE. IV INTACT, PATENT, FLUSHING WELL AND INTACT. PT HAS RECENT SURGERY OF LEFT ANKLE FRACTURE. DRESSING INTACT, WITH GHISLAINE WRAP. ALL SAFETY MEASURES IN PLACE. BED LOCKED AT LOWEST POSITION. SIDE RAILS UP X2. BED ALARM ON. ENDORSED TO BANQUET FOOD SERVER RN FOR CONTINUITY OF CARE.
--- NOTE | 2022-01-30 19:50 | NUR ---
RN OPENING NOTE PATIENT ASLEEP IN BED. A/OX4. NO S/S OF DISTRESS, BREATHING WITHOUT DIFFICULTY ON ROOM AIR. RAC #20 INTACT AND PATENT. TELE READS SB 56 W/ BIGEMMINY NOTED. SAFETY MEASURES IN PLACE: BED LOCKED IN PLACE AND AT LOWEST POSITION, RAILS UP X2, CALL PAGAN WITHIN REACH, WILL CONTINUE TO MONITOR PATIENT.
--- NOTE | 2022-01-30 20:54 | NUR ---
RN NOTE PATIENT COMPLAINED OF NASAL CONGESTION. PATIENT AND PATIENT'S DAUGHTER (VIA [employer] TABLET) REQUESTING. ON-CALL, ABEL VENTURA. ORDER GIVEN FOR FLONASE.
[2022-01-30 21:00] VITALS: BP 116/58
[2022-01-30] MEDS ORDERED: FLUTICASONE PROPIONATE 16 GM BOTTLE NS PRN ×2 (21:00→22:30)
[2022-01-30] MEDS: TOPIRAMATE 100 MG TABLET PO SCH (21:54)
[2022-01-30] MEDS: ESCITALOPRAM OXALATE (10 MG) 10 MG TABLET PO SCH (21:54)
[2022-01-30] MEDS: SENNOSIDES/DOCUSATE SODIUM 1 TAB TABLET PO SCH (21:54)
[2022-01-30] MEDS: ATORVASTATIN 40 MG TABLET PO SCH (22:00)
[2022-01-31] MEDS: TEMAZEPAM 7.5 MG CAPSULE PO PRN ×2 (00:55→23:10)
[2022-01-31 01:00] VITALS: BP 116/58
[2022-01-31 05:11] VITALS: BP 119/62
--- NOTE | 2022-01-31 06:52 | NUR ---
RN CLOSING NOTE PATIENT ASLEEP IN BED. A/OX3. NO S/S/ OF DISTRESS, BREATHING WITHOUT DIFFICULTY ON ROOM AIR. RAC #20 SL INTACT AND PATENT. TELE READS SB 50 W/ TOYINEMMENY. SAFETY MEASURES IN PLACE: BED LOCKED AND AT LOWEST POSITION, RAILS UP X2, CALL PAGAN WITHIN REACH. WILL ENDORSE TO NEXT SHIFT FOR MAXIMILIANO.
--- NOTE | 2022-01-31 08:01 | NUR ---
RN OPENING NOTE RECEIVED PATIENT IN BED, AO X 3. ABLE TO RESPONDS ALL STIMULI. RESPIRATORY EVEN AND UNLABORED IN ROOM AIR. IN NO ACUTE DISTRESS OBSERVED. SKIN IS WARM TO TOUCH, KEEP CLEAN/DRY. KEPT ELEVATED HOB FOR ASPIRATION PRECAUTION/ENSURE AIRWAY, AND LOWEST BED POSITIONED. BED ALARM IS ON AT ALL THE TIME FOR SAFETY. CALL LIGHT WITHIN REACH, WILL CONTINUE TO MONITOR
[2022-01-31] MEDS: LEVOTHYROXINE SODIUM 75 MCG TABLET PO SCH (08:17)
[2022-01-31] MEDS: VALSARTAN PO SCH ×2 (08:17→16:40)
[2022-01-31] MEDS: SACUBITRIL PO SCH ×2 (08:17→16:40)
[2022-01-31] MEDS: DAPAGLIFLOZIN 10 MG PO SCH (08:17)
[2022-01-31] MEDS: PANTOPRAZOLE 40 MG TABLET.DR PO SCH (08:18)
[2022-01-31] MEDS: ASPIRIN 325 MG TABLET PO SCH (08:18)
[2022-01-31] MEDS: GABAPENTIN 300 MG CAPSULE PO SCH ×3 (08:18→16:39)
[2022-01-31] MEDS: BUPROPION XL 150 MG TAB.ER.24 PO SCH (08:18)
[2022-01-31] MEDS: TOPIRAMATE 25 MG TABLET PO SCH (08:20)
[2022-01-31] MEDS: METOPROLOL SUCCINATE 25 MG TAB.SR.24H PO SCH (08:21)
[2022-01-31 09:00] VITALS: BP 125/76
[2022-01-31 10:09] LABS: BASOPHILS % (AUTO) 0.6 % (0.0-2.0); EOSINOPHILS % (AUTO) 2.5 % (0.0-6.0); HEMATOCRIT 33 % (33-45); HEMOGLOBIN 10.6 g/dL (11.5-14.8); LYMPHOCYTES % (AUTO) 20.9 % (20.0-44.0); MEAN CORPUSCULAR HGB CONC 32 g/dl (31.0-36.0); MEAN CORPUSCULAR VOLUME 98 fL (82-100); MONOCYTES # (AUTO) 2.1 K/uL (0.1-1.30); NEUTROPHILS # (AUTO) 1.6 K/uL (1.8-8.9); PLATELET COUNT (AUTO) 188 K/uL (150-450); WHITE BLOOD COUNT (AUTO) 4.8 K/uL (4.3-11.0)
[2022-01-31 11:32] LABS: CALCIUM, SERUM 9.2 mg/dL (8.5-10.1); MAGNESIUM 2.3 mg/dL (1.8-2.4); PHOSPHORUS 3.4 mg/dL (2.5-4.9)
[2022-01-31] MEDS: BUPRENORPHINE TP SCH (12:13)
[2022-01-31 13:00] VITALS: BP 131/65
[2022-01-31 17:00] VITALS: BP 111/62
--- NOTE | 2022-01-31 17:42 | NUR ---
RN CLOSING NOTE PATIENT RESTING IN BED. IN NO ACUTE DISTRESS OBSERVED. RESPIRATORY EVEN AND UNLABORED IN ROOM AIR. NO SOB OR DIFFICULT TO BREATH OBSERVED. SKIN IS WARM TO TOUCH KEEP CLEAN/DRY. PROVIDED SKI CARE. KEPT ELEVATED HOB FOR ENSURE AIRWAY/ASPIRATION PRECAUTION, AND LOWEST BED POSITION. BED ALARM IS ON AT ALL THE TIME FOR SAFETY. 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
[2022-01-31 18:39] LABS: EOSINOPHILS % (MANUAL) 2 % (0-4); LYMPHOCYTES % (MANUAL) 27 % (16-48); MONOCYTES % (MANUAL) 34 % (0-11.0); NEUTROPHILS % (MANUAL) 36 (42-76); REACTIVE LYMPHOCYTES 1 % (0-0)
--- NOTE | 2022-01-31 19:30 | NUR ---
RN OPENING NOTE PT A&OX4. SKIN IS WARM AND DRY. RESPIRATIONS EVEN AND UNLABORED ON RA. RLE IS IN BOOT WHILE LLE IS WRAPPED. PT STATES THAT SHE FXD HER L ANKLE. RAC 20G SALINE LOCKED. BUPRENORPHINE PATCH INTACT. PT REQUESTING LAXATIVE DUE TO ABDOMINAL DISCOMFORT. PT CANNOT RECALL LAST BM. EDUCATED PT ON ADEQUATE HYDRATION TO STIMULATE BOWELS. BED LOCKED AND AT LOWEST LEVEL WITH 2 RAILS UP. CALL IGHT WITHIN REACH.
[2022-01-31] MEDS: ENOXAPARIN SODIUM 40 MG/0.4 ML DISP.SYRIN SQ SCH (20:22)
[2022-01-31 21:00] VITALS: BP 118/61
[2022-01-31] MEDS: ATORVASTATIN 40 MG TABLET PO SCH (21:33)
[2022-01-31] MEDS: ESCITALOPRAM OXALATE (10 MG) 10 MG TABLET PO SCH (21:34)
[2022-01-31] MEDS: TOPIRAMATE 100 MG TABLET PO SCH (21:34)
[2022-01-31] MEDS: SENNOSIDES/DOCUSATE SODIUM 1 TAB TABLET PO SCH (21:34)
[2022-01-31] MEDS: ESZOPICLONE PO SCH (21:34)
[2022-02-01] VITALS: BP 108/56
[2022-02-01 05:00] VITALS: BP 121/61
--- NOTE | 2022-02-01 06:44 | NUR ---
RN CLOSING NOTE PT A&OX4. PT IN SEMI-FOWLERS POSITION AND AWAKE. SKIN IS WARM AND DRY. RESPIRATIONS EVEN AND UNLABORED ON RA. RAC 20G SALINE LOCKED. NO SIGNIFICANT CHANGES DURING SHIFT. DENIES PAIN OR OTHER NEEDS AT THIS TIME. BED LOCKED AND AT LOWEST LEVEL WITH 2 RAILS UP. CALL LIGHT WITHIN REACH.
[2022-02-01] MEDS: LEVOTHYROXINE SODIUM 75 MCG TABLET PO SCH (07:43)
[2022-02-01] MEDS: PANTOPRAZOLE 40 MG TABLET.DR PO SCH (07:43)
[2022-02-01] MEDS: oxyCODONE/APAP (5/325 MG) 1 UDTAB TABLET PO PRN ×2 (07:56→21:25)
[2022-02-01 09:00] VITALS: BP 105/44
[2022-02-01] MEDS: METOPROLOL SUCCINATE 25 MG TAB.SR.24H PO SCH (09:00)
[2022-02-01] MEDS: VALSARTAN PO SCH ×2 (09:00→16:10)
[2022-02-01] MEDS: SACUBITRIL PO SCH ×2 (09:00→16:10)
[2022-02-01 09:40] LABS: BASOPHILS % (AUTO) 0.5 % (0.0-2.0); EOSINOPHILS % (AUTO) 2.9 % (0.0-6.0); HEMATOCRIT 33 % (33-45); HEMOGLOBIN 10.3 g/dL (11.5-14.8); LYMPHOCYTES # (AUTO) 1.2 K/uL (0.8-4.8); LYMPHOCYTES % (AUTO) 29.9 % (20.0-44.0); MEAN CORPUSCULAR HGB CONC 32 g/dl (31.0-36.0); MEAN CORPUSCULAR VOLUME 98 fL (82-100); MONOCYTES # (AUTO) 1.4 K/uL (0.1-1.30); MONOCYTES % (AUTO) 36.7 % (2.0-12.0); NEUTROPHILS # (AUTO) 1.2 K/uL (1.8-8.9); PLATELET COUNT (AUTO) 188 K/uL (150-450); RED BLOOD CELL COUNT(AUTO) 3.32 MIL/uL (4.0-5.2); WHITE BLOOD COUNT (AUTO) 3.9 K/uL (4.3-11.0)
[2022-02-01 09:42] LABS: CALCIUM, SERUM 8.8 mg/dL (8.5-10.1); MAGNESIUM 2.3 mg/dL (1.8-2.4); PHOSPHORUS 2.8 mg/dL (2.5-4.9); POTASSIUM 3.6 mmol/L (3.5-5.1)
[2022-02-01] MEDS: TOPIRAMATE 25 MG TABLET PO SCH (10:00)
[2022-02-01] MEDS: ASPIRIN 325 MG TABLET PO SCH (10:00)
[2022-02-01] MEDS: BUPROPION XL 150 MG TAB.ER.24 PO SCH (10:00)
[2022-02-01] MEDS: GABAPENTIN 300 MG CAPSULE PO SCH ×3 (10:00→16:13)
[2022-02-01] MEDS: DAPAGLIFLOZIN 10 MG PO SCH (10:00)
[2022-02-01 10:08] LABS: EOSINOPHILS % (MANUAL) 2 % (0-4); LYMPHOCYTES % (MANUAL) 32 % (16-48); MONOCYTES % (MANUAL) 28 % (0-11.0); NEUTROPHILS % (MANUAL) 38 (42-76)
[2022-02-01 13:00] VITALS: BP 125/54
[2022-02-01 17:00] VITALS: BP 116/51
--- NOTE | 2022-02-01 18:56 | NUR ---
RN CLOSING NOTE PT A&OX4. PT IN SEMI-FOWLERS POSITION AND AWAKE. SKIN IS WARM AND DRY. RESPIRATIONS EVEN AND UNLABORED ON RA. RAC 20G SALINE LOCKED. NO SIGNIFICANT CHANGES DURING SHIFT. DENIES PAIN OR OTHER NEEDS AT THIS TIME. BED LOCKED AND AT LOWEST LEVEL WITH 2 RAILS UP. CALL LIGHT WITHIN REACH. WILL ENDORSE CONTINUITY OF CARE TO HVAC R INSTRUCTOR NURSE.
--- NOTE | 2022-02-01 19:00 | NUR ---
HAT RENOVATOR OPENING NOTE PATIENT IS IN BED PLAYING IPAD. SHE IS ALERT AND ORIENTED, AO X 4. SHE IS ON RA, O2 SAT IS ABOVE 93%; TOLERATED WELL. NO S/S OF SOB OR DISTRESS. PATIENT IS ON EXTERNAL PADDED BOX SEWER AND THE HEART RHYTHM ON THE MONITOR IS SR HR IS AROUND HIGH 50s. R LE IS IN BOOT WHILE L LE IS WRAPPED WITH CAST AND ELESTIC BANDAGE. DRESSING IS DRY AND INTACT. R AC 20G SALINE LOCKED. SAFETY MEASURES ARE IN PLACED: BED IN LOWEST AND LOCKED POSITION; SIDE RAILS UP X 2; BED ALARM IS SET; CALL LIGHT AND TABLE ARE WITHIN REACH. WILL CONTINUE MONITOR PATIENT'S CONDITION AND PROVIDE THE CARE SHE NEEDS.
[2022-02-01 21:00] VITALS: BP 113/59
[2022-02-01] MEDS: SENNOSIDES/DOCUSATE SODIUM 1 TAB TABLET PO SCH (21:14)
[2022-02-01] MEDS: ESCITALOPRAM OXALATE (10 MG) 10 MG TABLET PO SCH (21:15)
[2022-02-01] MEDS: TOPIRAMATE 100 MG TABLET PO SCH (21:15)
[2022-02-01] MEDS: ATORVASTATIN 40 MG TABLET PO SCH (21:15)
[2022-02-01] MEDS: ENOXAPARIN SODIUM 40 MG/0.4 ML DISP.SYRIN SQ SCH (21:17)
[2022-02-01] MEDS: ESZOPICLONE PO SCH (21:28)
[2022-02-02 01:00] VITALS: BP 114/53
[2022-02-02 05:00] VITALS: BP 100/48
--- NOTE | 2022-02-02 07:26 | NUR ---
SATURATOR OPERATOR CLOSING NOTE PATIENT IS IN BED SLEEPING. SHE IS ON RA, O2 SAT IS ABOVE 93%; TOLERATED WELL. NO S/S OF SOB OR DISTRESS. PATIENT IS ON EXTERNAL APPEALS REVIEWER VETERAN AND THE HEART RHYTHM ON THE MONITOR IS SR HR IS AROUND HIGH 50s. DRESSING IS DRY AND INTACT. R AC 20G SALINE LOCKED. PATENT AND INTACT. SAFETY MEASURES ARE IN PLACED: BED IN LOWEST AND LOCKED POSITION; SIDE RAILS UP X 2; BED ALARM IS SET; CALL LIGHT AND TABLE ARE WITHIN REACH. WILL ENDORSE NEXT SHIFT NURSE FOR CONTINUING PATIENT CARE.
[2022-02-02] MEDS: PANTOPRAZOLE 40 MG TABLET.DR PO SCH (07:55)
[2022-02-02] MEDS: LEVOTHYROXINE SODIUM 75 MCG TABLET PO SCH (07:55)
--- NOTE | 2022-02-02 08:00 | NUR ---
RN OPENING NOTE PT IS IN BED, A&OX4. SKIN IS WARM AND DRY. IV ACCESS RIGHT AC, SALINE LOCK FLUSHES WELL. RESPIRATIONS EVEN AND UNLABORED ON RA. BED LOCKED AND AT LOWEST LEVEL WITH 2 RAILS UP. CALL IGHT WITHIN REACH.
[2022-02-02 08:50] LABS: HEMOGLOBIN 10.5 g/dL (11.5-14.8); LYMPHOCYTES # (AUTO) 1.6 K/uL (0.8-4.8); MONOCYTES # (AUTO) 1.5 K/uL (0.1-1.30); WHITE BLOOD COUNT (AUTO) 4.2 K/uL (4.3-11.0)
[2022-02-02 08:57] LABS: BASOPHILS % (AUTO) 0.8 % (0.0-2.0); EOSINOPHILS % (AUTO) 3.1 % (0.0-6.0); HEMATOCRIT 34 % (33-45); LYMPHOCYTES % (AUTO) 37.4 % (20.0-44.0); MEAN CORPUSCULAR HGB CONC 31 g/dl (31.0-36.0); MEAN CORPUSCULAR VOLUME 99 fL (82-100); MONOCYTES % (AUTO) 34.7 % (2.0-12.0); PLATELET COUNT (AUTO) 184 K/uL (150-450); RED BLOOD CELL COUNT(AUTO) 3.38 MIL/uL (4.0-5.2)
[2022-02-02 09:00] VITALS: BP 123/61
[2022-02-02 09:02] LABS: CALCIUM, SERUM 8.8 mg/dL (8.5-10.1); CREATININE 0.9 mg/dL (0.6-1.3); MAGNESIUM 2.4 mg/dL (1.8-2.4); PHOSPHORUS 3.6 mg/dL (2.5-4.9); POTASSIUM 3.9 mmol/L (3.5-5.1)
[2022-02-02] MEDS: BUPROPION XL 150 MG TAB.ER.24 PO SCH (09:41)
[2022-02-02] MEDS: DAPAGLIFLOZIN 10 MG PO SCH (09:41)
[2022-02-02] MEDS: GABAPENTIN 300 MG CAPSULE PO SCH ×3 (09:41→16:18)
[2022-02-02] MEDS: TOPIRAMATE 25 MG TABLET PO SCH (09:41)
[2022-02-02] MEDS: ASPIRIN 325 MG TABLET PO SCH (09:41)
[2022-02-02] MEDS: METOPROLOL SUCCINATE 25 MG TAB.SR.24H PO SCH (09:41)
[2022-02-02] MEDS: VALSARTAN PO SCH ×2 (09:42→16:17)
[2022-02-02] MEDS: SACUBITRIL PO SCH ×2 (09:42→16:17)
[2022-02-02 13:00] VITALS: BP 114/46
[2022-02-02] MEDS ORDERED: KEY,NONCONTROL,TO KEEP IN PYXI 1 EA MC ONE ×2 (14:10→23:23)
--- NOTE | 2022-02-02 14:13 | NUR ---
RN NOTE RECEIVED 7 TABS OF ESZOPICLONE FROM PHARMACY WITH FORM, PLACED IN LOCKED BOX IN MEDICATION ROOM PER PROTOCOL.
[2022-02-02 15:56] LABS: EOSINOPHILS % (MANUAL) 5 % (0-4); LYMPHOCYTES % (MANUAL) 39 % (16-48); MONOCYTES % (MANUAL) 29 % (0-11.0); NEUTROPHILS % (MANUAL) 27 (42-76)
[2022-02-02 17:00] VITALS: BP 104/57
--- NOTE | 2022-02-02 19:17 | NUR ---
PATIENT IS IN BED AWAKE. SHE IS ON RA, O2 SAT IS ABOVE 93%; NO S/S OF SOB OR DISTRESS. PATIENT IS ON EXTERNAL FACILITIES FLIGHT CHECK PILOT AND THE HEART RHYTHM ON THE MONITOR IS SR HR IS AROUND HIGH 50s.R AC 20G SALINE LOCKED. PATENT AND INTACT. SAFETY MEASURES ARE IN PLACED: BED IN LOWEST AND LOCKED POSITION; SIDE RAILS UP X 2; BED ALARM IS SET; CALL LIGHT AND TABLE ARE WITHIN REACH. WILL ENDORSE NEXT SHIFT NURSE FOR CONTINUING PATIENT CARE.
--- NOTE | 2022-02-02 19:30 | NUR ---
MOLECULAR BIOLOGIST OPENING NOTE RECEIVED PATIENT IN BED; AWAKE, ALERT AND ORIENTED X 4. ON ROOM AIR; TOLERATING WELL. BREATHING EVEN AND NONLABORED. NOT IN ANY FORM OF RESPIRATORY OR CARDIAC DISTRESS. NO C/O PAIN OR DISCOMFORT AT THIS TIME. ON TELE MONITORING WITH READING OF SINUS BRADYCARDIA HR-55 BPM. ABLE TO MAKE NEEDS KNOWN. WITH IV ACCESS ON RIGHT ANTECUBITAL 20G; PATENT, INTACT AND SALINE LOCKED. SAFETY MEASURES IMPLEMENTED: CALL LIGHT AND TABLE WITHIN REACH, SIDE RAILS UP X 2, BED IN LOWEST LOCKED POSITION. WILL CONTINUE TO MONITOR.
[2022-02-02 21:00] VITALS: BP 103/52
[2022-02-02] MEDS: ENOXAPARIN SODIUM 40 MG/0.4 ML DISP.SYRIN SQ SCH (21:35)
[2022-02-02] MEDS: ATORVASTATIN 40 MG TABLET PO SCH (21:37)
[2022-02-02] MEDS: ESCITALOPRAM OXALATE (10 MG) 10 MG TABLET PO SCH (21:37)
[2022-02-02] MEDS: SENNOSIDES/DOCUSATE SODIUM 1 TAB TABLET PO SCH (21:38)
[2022-02-02] MEDS: TOPIRAMATE 100 MG TABLET PO SCH (21:38)
[2022-02-02] MEDS: ESZOPICLONE PO SCH ×2 (22:00→23:29)
[2022-02-02] MEDS: oxyCODONE/APAP (5/325 MG) 1 UDTAB TABLET PO PRN (22:25)
[2022-02-03 01:00] VITALS: BP 105/56
[2022-02-03] MEDS: oxyCODONE/APAP (5/325 MG) 1 UDTAB TABLET PO PRN ×2 (03:58→14:06)
[2022-02-03 05:00] VITALS: BP 106/50
--- NOTE | 2022-02-03 07:05 | NUR ---
INSTRUCTOR MILITARY SCIENCE CLOSING NOTE PATIENT IN BED; AWAKE, A/O X 4. STABLE ON ROOM AIR. BREATHING EVEN AND NONLABORED. NOT IN ANY FORM OF RESPIRATORY OR CARDIAC DISTRESS. NO C/O PAIN OR DISCOMFORT AT THIS TIME. ON TELE MONITORING WITH READING OF SINUS RHYTHM HR-64 BPM. WITH IV ACCESS ON RIGHT ANTECUBITAL 20G; PATENT, INTACT AND SALINE LOCKED. SAFETY MEASURES MAINTAINED: CALL LIGHT AND TABLE WITHIN REACH, SIDE RAILS UP X 2, BED IN LOWEST LOCKED POSITION. ENDORSED TO MORNING SHIFT FOR MAXIMILIANO.
[2022-02-03] MEDS: PANTOPRAZOLE 40 MG TABLET.DR PO SCH (07:37)
[2022-02-03] MEDS: LEVOTHYROXINE SODIUM 75 MCG TABLET PO SCH (07:38)
--- NOTE | 2022-02-03 08:00 | NUR ---
JAVA SUPPORT ENGINEER OPENING NOTE RECEIVED PATIENT IN BED; AWAKE, ALERT AND ORIENTED X 4. ON ROOM AIR; TOLERATING WELL. BREATHING EVEN AND NONLABORED. NOT IN ANY FORM OF RESPIRATORY OR CARDIAC DISTRESS. NO C/O PAIN OR DISCOMFORT AT THIS TIME. ABLE TO MAKE NEEDS KNOWN. WITH IV ACCESS ON RIGHT ANTECUBITAL 20G SALINE LOCK.;SAFETY MEASURES IMPLEMENTED: CALL LIGHT AND TABLE WITHIN REACH, SIDE RAILS UP X 2, BED IN LOWEST LOCKED POSITION. WILL CONTINUE TO MONITOR.
[2022-02-03] MEDS: VALSARTAN PO SCH ×2 (08:18→16:36)
[2022-02-03] MEDS: SACUBITRIL PO SCH ×2 (08:18→16:36)
[2022-02-03] MEDS: ASPIRIN 325 MG TABLET PO SCH (08:18)
[2022-02-03] MEDS: TOPIRAMATE 25 MG TABLET PO SCH (08:19)
[2022-02-03] MEDS: GABAPENTIN 300 MG CAPSULE PO SCH ×3 (08:19→16:36)
[2022-02-03] MEDS: BUPROPION XL 150 MG TAB.ER.24 PO SCH (08:20)
[2022-02-03] MEDS: DAPAGLIFLOZIN 10 MG PO SCH (08:56)
[2022-02-03 09:00] VITALS: BP 102/49
[2022-02-03] MEDS: METOPROLOL SUCCINATE 25 MG TAB.SR.24H PO SCH (09:00)
--- NOTE | 2022-02-03 09:00 | NUR ---
RN NOTE METOPROLOL AT O900 AM NOT GIVEN BP IS 102/49 HR 55 CONTINUE TO MONITOR.
--- NOTE | 2022-02-03 10:00 | NUR ---
REPORT GIVEN TO AMILCAR FOR CONTINUING OF CARE
[2022-02-03 12:00] VITALS: BP 90/51
[2022-02-03 16:00] VITALS: BP 91/52
--- NOTE | 2022-02-03 19:30 | NUR ---
HADOOP ARCHITECT OPENING NOTE RECEIVED PT AWAKE IN BED. A/O X4 AND ABLE TO MAKE NEEDS KNOWN. PT STABLE ON ROOM AIR. NO SOB OR S/S OF RESPIRATORY DISTRESS. BREATHING EVEN AND UNLABORED. ON EXTERNAL BLAST FURNACE TENDER READING SB 56 BPM. IV ACCESS RAC 20G, INTACT AND PATENT. SAFETY PRECAUTIONS IN PLACE. BED IN LOWEST LOCKED POSITION, HOB ELEVATED, SIDE RAILS UP X3, AND CALL LIGHT AND TABLE WITHIN REACH. ALL NEEDS MET AT THIS TIME.
[2022-02-03 20:00] VITALS: BP 97/42
[2022-02-03] MEDS: ESCITALOPRAM OXALATE (10 MG) 10 MG TABLET PO SCH (21:03)
[2022-02-03] MEDS: ENOXAPARIN SODIUM 40 MG/0.4 ML DISP.SYRIN SQ SCH (21:03)
[2022-02-03] MEDS: GUAIFENESIN/D-METHORPHAN HB 5 ML UDC PO PRN (21:03)
[2022-02-03] MEDS: ATORVASTATIN 40 MG TABLET PO SCH (21:03)
[2022-02-03] MEDS: TOPIRAMATE 100 MG TABLET PO SCH (21:03)
[2022-02-03] MEDS: SENNOSIDES/DOCUSATE SODIUM 1 TAB TABLET PO SCH (21:03)
[2022-02-04] VITALS: BP 133/70
[2022-02-04] MEDS: oxyCODONE/APAP (5/325 MG) 1 UDTAB TABLET PO PRN ×3 (00:41→23:21)
--- NOTE | 2022-02-04 00:51 | NUR ---
RN NOTE PT COMPLAINED OF PAIN 8/10 GENERALIZED. ADMINISTERED PERCOCET 2UTABS FOR SEVERE PAIN ORDERED. MADE COMFORTABLE IN BED. ALL NEEDS MET AT THIS TIME.
[2022-02-04] MEDS: TEMAZEPAM 7.5 MG CAPSULE PO PRN ×2 (01:51→23:21)
--- NOTE | 2022-02-04 01:51 | NUR ---
RN NOTE PT REQUESTING SLEEPING PILL. ADMINISTERED RESTORIL 7.5 MG FOR INSOMNIA ORDERED. VITAL SIGNS WNL. MADE COMFORTABLE IN BED. ALL NEEDS MET AT THIS TIME.
[2022-02-04 04:00] VITALS: BP 128/61
--- NOTE | 2022-02-04 06:46 | NUR ---
SENIOR VICE PRESIDENT CLOSING NOTE PT AWAKE IN BED. A/O X4 AND ABLE TO MAKE NEEDS KNOWN. PT STABLE ON ROOM AIR. NO SOB OR S/S OF RESPIRATORY DISTRESS. BREATHING EVEN AND UNLABORED. ON EXTERNAL OTM CONSULTANT READING SB 56 BPM. IV ACCESS L WRIST 22G, INTACT AND PATENT. ALL DUE MEDS GIVEN ORDERED. KEPT CLEAN AND DRY. SAFETY PRECAUTIONS IN PLACE AT ALL TIMES. BED IN LOWEST LOCKED POSITION, HOB ELEVATED, SIDE RAILS UP X3, AND CALL LIGHT AND TABLE WITHIN REACH. ALL NEEDS MET AT THIS TIME AND WILL ENDORSE TO ONCOMING NURSE FOR MAXIMILIANO.
--- NOTE | 2022-02-04 06:49 | NUR ---
ATMOSPHERIC TECHNICIAN CLOSING NOTE PT AWAKE IN BED. A/O X1 AND ABLE TO MAKE NEEDS KNOWN. PT STABLE ON O2 @ 2LPM VIA NC, TOLERATING WELL. NO SOB OR S/S OF RESPIRATORY DISTRESS. BREATHING EVEN AND UNLABORED. ON EXTERNAL VAMP STRAP IRONER READING SR 75 BPM. IV ACCESS L HAND 20G, INTACT AND PATENT. WITH BILLS IN PLACE DRAINING URINE BY GRAVITY, DRAINED 1250 CC THIS SHIFT. ALL DUE MEDS GIVEN ORDERED. KEPT CLEAN AND DRY. SAFETY PRECAUTIONS IN PLACE AT ALL TIMES. BED IN LOWEST LOCKED POSITION, HOB ELEVATED, SIDE RAILS UP X3, AND CALL LIGHT AND TABLE WITHIN REACH. ALL NEEDS MET AT THIS TIME AND WILL ENDORSE TO ONCOMING NURSE FOR MAXIMILIANO. Addendum: 02/04/22 at 0652 by JENNIFER REILLY RN DOCUMENTATION FOR WRONG PATIENT, PLEASE DISREGARD.
--- NOTE | 2022-02-04 07:30 | NUR ---
GRADER TENDER OPENING NOTES: RECEIVED PT AWAKE IN BED. A/O X4 AND ABLE TO MAKE NEEDS KNOWN. PT STABLE ON ROOM AIR. NO SOB OR S/S OF RESPIRATORY DISTRESS. BREATHING EVEN AND UNLABORED. ON EXTERNAL ANIMAL SHELTER SUPERVISOR READING SB 58 BPM. IV ACCESS L WRIST 22G, INTACT AND PATENT. SAFETY PRECAUTIONS IN PLACE AT ALL TIMES. BED IN LOWEST LOCKED POSITION, HOB ELEVATED, SIDE RAILS UP X3, AND CALL LIGHT AND TABLE WITHIN REACH, WILL CONT WITH PLAN OF CARE DURING SHIFT.
[2022-02-04 08:00] VITALS: BP 105/62
[2022-02-04] MEDS: PANTOPRAZOLE 40 MG TABLET.DR PO SCH (08:50)
[2022-02-04] MEDS: LEVOTHYROXINE SODIUM 75 MCG TABLET PO SCH (08:50)
[2022-02-04] MEDS: BUPROPION XL 150 MG TAB.ER.24 PO SCH (08:52)
[2022-02-04] MEDS: GABAPENTIN 300 MG CAPSULE PO SCH ×3 (08:54→16:58)
[2022-02-04] MEDS: METOPROLOL SUCCINATE 25 MG TAB.SR.24H PO SCH (08:54)
[2022-02-04] MEDS: ASPIRIN 325 MG TABLET PO SCH (08:54)
[2022-02-04] MEDS: TOPIRAMATE 25 MG TABLET PO SCH (08:54)
[2022-02-04] MEDS: DAPAGLIFLOZIN 10 MG PO SCH (08:55)
[2022-02-04] MEDS: VALSARTAN PO SCH ×2 (08:55→16:58)
[2022-02-04] MEDS: SACUBITRIL PO SCH ×2 (08:55→16:58)
[2022-02-04] MEDS: GUAIFENESIN/D-METHORPHAN HB 5 ML UDC PO PRN (10:02)
[2022-02-04 12:00] VITALS: BP 104/48
[2022-02-04 16:00] VITALS: BP 111/63
--- NOTE | 2022-02-04 19:09 | NUR ---
TOOL SPECIALIST CLOSING NOTES: PT AWAKE IN BED. A/O X4 AND ABLE TO MAKE NEEDS KNOWN. PT STABLE ON ROOM AIR. NO SOB OR S/S OF RESPIRATORY DISTRESS. BREATHING EVEN AND UNLABORED. ON EXTERNAL TELEGRAPH OFFICE TELEPHONE CLERK READING SB 55 BPM. IV ACCESS L WRIST 22G, INTACT AND PATENT. KEPT PT CLEAN, DRY AND COMFORTABLE, MEDS GIVEN. SAFETY PRECAUTIONS IN PLACE AT ALL TIMES. BED IN LOWEST LOCKED POSITION, HOB ELEVATED, SIDE RAILS UP X3, AND CALL LIGHT AND TABLE WITHIN REACH, WILL CONT WITH PLAN OF CARE DURING SHIFT.
[2022-02-04 20:00] VITALS: BP 95/53
[2022-02-04] MEDS: ATORVASTATIN 40 MG TABLET PO SCH (21:05)
[2022-02-04] MEDS: ESCITALOPRAM OXALATE (10 MG) 10 MG TABLET PO SCH (21:05)
[2022-02-04] MEDS: TOPIRAMATE 100 MG TABLET PO SCH (21:05)
[2022-02-04] MEDS: SENNOSIDES/DOCUSATE SODIUM 1 TAB TABLET PO SCH (21:10)
[2022-02-04] MEDS: ENOXAPARIN SODIUM 40 MG/0.4 ML DISP.SYRIN SQ SCH (21:12)
--- NOTE | 2022-02-04 21:15 | NUR ---
ANTICOAGULANT No bleeding. H/H Plt in the last 3 days . Plt 184. Given Lovenox injection, co-signed by WAQAR [place].
[2022-02-04] MEDS: ESZOPICLONE PO SCH (22:00)
[2022-02-05 00:51] VITALS: BP 95/49
[2022-02-05 05:26] VITALS: BP 105/55
--- NOTE | 2022-02-05 07:30 | NUR ---
TOUR SALES REPRESENTATIVE OPENING NOTES: RECEIVED PT IN BED ASLEEP. EASILY AROUSED WITH STIMULI, ALERT AND ORIENTED X 4 AND ABLE TO MAKE NEEDS KNOWN. ON ROOM AIR AND TOLERATING WELL. ON OIL BURNER INSTALLER WITH CURRENT READING OF SINUS KALEB @50BPM. PT NOTED WITH LEFT HAND GAUGE 22,PATENT,INTACT AND SL. SAFETY MEASURES MAINTAINED: BED LOCKED AND IN LOWEST POSITION,SIDE RAILS UP X 2. CALL LIGHT IN EASY REACH FOR HELP. WILL MONITOR PT ACCORDINGLY.
[2022-02-05] MEDS: PANTOPRAZOLE 40 MG TABLET.DR PO SCH (07:44)
[2022-02-05] MEDS: LEVOTHYROXINE SODIUM 75 MCG TABLET PO SCH (07:44)
--- NOTE | 2022-02-05 07:51 | NUR ---
END OF SHIFT REPORT Patient in bed, A/O x4. Cooperative. Sinus kuldeep HR 50's in the Tele monitor. No cough, denies sob. Slept most of the night. Leg pain improved with Percocet. No acute distress during the shift. Plan for dc to SNF. Endorsed to WAQAR [place].
[2022-02-05 08:00] VITALS: BP 96/53
[2022-02-05] MEDS: ASPIRIN 325 MG TABLET PO SCH (08:19)
[2022-02-05] MEDS: DAPAGLIFLOZIN 10 MG PO SCH (08:19)
[2022-02-05] MEDS: VALSARTAN PO SCH ×2 (08:19→16:15)
[2022-02-05] MEDS: SACUBITRIL PO SCH ×2 (08:19→16:15)
[2022-02-05] MEDS: TOPIRAMATE 25 MG TABLET PO SCH (08:20)
[2022-02-05] MEDS: GABAPENTIN 300 MG CAPSULE PO SCH ×3 (08:21→16:15)
[2022-02-05] MEDS: BUPROPION XL 150 MG TAB.ER.24 PO SCH (08:21)
[2022-02-05] MEDS: METOPROLOL SUCCINATE 25 MG TAB.SR.24H PO SCH (08:25)
[2022-02-05] MEDS: oxyCODONE/APAP (5/325 MG) 1 UDTAB TABLET PO PRN ×2 (09:46→21:17)
[2022-02-05 12:00] VITALS: BP 125/63
--- NOTE | 2022-02-05 15:00 | NUR ---
RN NOTES: FOLLOW UP FOR DC UPDATES: THUMB SEWER JOSE ANTONIO SAID AUTHORIZATION STILL PENDING. WILL CONTINUE TO FOLLOW UP.
[2022-02-05 16:00] VITALS: BP 100/54
--- NOTE | 2022-02-05 16:25 | NUR ---
RN NOTES: INFORMED DAUGHTER MILDRED TO BRING COUPLE OF ENTRESTO AND LUNESTA. AUTHORIZATION STILL PENDING DAUGHTER MADE AWARE.
--- NOTE | 2022-02-05 17:30 | NUR ---
RN NOTES: HOME MEDS DROPPED TO PHARMACY.
--- NOTE | 2022-02-05 18:46 | NUR ---
BRAKE LINING DRILLER CLOSING NOTES PT IN BED AWAKE,WATCHING TELEVISION. ALERT AND ORIENTED X 4 AND ABLE TO MAKE NEEDS KNOWN. ON ROOM AIR AND TOLERATING WELL. ON FOOD TRADES ASSISTANTS WITH CURRENT READING OF SINUS KALEB @55BPM. PT NOTED WITH LEFT HAND GAUGE 22,PATENT,INTACT AND SL. PATIENT ON PUREWICK DRAINING CLEAR YELLOW COLORED URINE VIA INTERMITTENT SUCTION. SAFETY MEASURES MAINTAINED: BED LOCKED AND IN LOWEST POSITION,SIDE RAILS UP X 2. CALL LIGHT IN EASY REACH FOR HELP. ENDORSED TO EXTERNAL AUDITOR RN FOR MAXIMILIANO.
--- NOTE | 2022-02-05 19:30 | NUR ---
IMPORT EXPORT MANAGER OPENING NOTE RECEIVED PT IN BED AWAKE. ALERT AND ORIENTED X 4 AND ABLE TO MAKE NEEDS KNOWN. ON ROOM AIR, AND TOLERATING RA WELL. ON DATA MIGRATION CONSULTANT WITH CURRENT READING OF SINUS RHYTHM @ 75 BPM. LEFT HAND GAUGE 22,PATENT,INTACT AND SL. SAFETY MEASURES MAINTAINED: BED LOCKED AND IN LOWEST POSITION,SIDE RAILS UP X 2. CALL LIGHT IN EASY REACH FOR HELP. WILL MONITOR PT ACCORDINGLY.
[2022-02-05 20:00] VITALS: BP 105/51
--- NOTE | 2022-02-05 21:15 | NUR ---
CUSTOMER EXPERIENCE ANALYST NOTE PT C/O PAIN TO BLE. PAIN MED PERCOCET ADMINISTERED TO PT. PT REPORTS ALSO COUGH. COUGH MED GIVEN TO PT.
[2022-02-05] MEDS: GUAIFENESIN/D-METHORPHAN HB 5 ML UDC PO PRN (21:17)
[2022-02-05] MEDS: ENOXAPARIN SODIUM 40 MG/0.4 ML DISP.SYRIN SQ SCH (21:19)
[2022-02-05] MEDS: ATORVASTATIN 40 MG TABLET PO SCH (22:23)
[2022-02-05] MEDS: TOPIRAMATE 100 MG TABLET PO SCH (22:24)
[2022-02-05] MEDS: SENNOSIDES/DOCUSATE SODIUM 1 TAB TABLET PO SCH (22:24)
[2022-02-05] MEDS: ESCITALOPRAM OXALATE (10 MG) 10 MG TABLET PO SCH (22:24)
[2022-02-05] MEDS ORDERED: KEY,NONCONTROL,TO KEEP IN PYXI 1 EA MC ONE (22:42)
[2022-02-05] MEDS: ESZOPICLONE PO SCH (22:44)
[2022-02-06] VITALS: BP 109/47
[2022-02-06 04:00] VITALS: BP 99/47
--- NOTE | 2022-02-06 07:00 | NUR ---
COAT EXAMINER CLOSING NOTE PT IN BED RESTING. ALERT AND ORIENTED X 4 AND ABLE TO MAKE NEEDS KNOWN. ON ROOM AIR AND TOLERATING WELL. ON PASTOR WITH CURRENT READING OF SINUS KALEB @52 BPM. IV ACCESS TO LEFT HAND GAUGE 22,PATENT,INTACT AND SL. PATIENT ON PUREWICK DRAINING CLEAR YELLOW URINE VIA INTERMITTENT SUCTION. SAFETY MEASURES MAINTAINED: BED LOCKED AND IN LOWEST POSITION,SIDE RAILS UP X 2. CALL LIGHT IN EASY REACH FOR HELP. WILL ENDORSE TO AM SHIFT RN FOR MAXIMILIANO.
--- NOTE | 2022-02-06 07:56 | NUR ---
FOOD ORDER DELIVERY RUNNER OPENING NOTE RECEIVED PT IN BED AWAKE. ALERT AND ORIENTED X 4 AND ABLE TO MAKE NEEDS KNOWN. ON ROOM AIR, AND TOLERATING RA WELL. ON BOARD TURNER WITH CURRENT READING OF SINUS RHYTHM. LEFT HAND PIV NOTED INTACT. ISOLATION CONTINUED. SAFETY MEASURES MAINTAINED: BED LOCKED AND IN LOWEST POSITION,SIDE RAILS UP X 2. CALL LIGHT IN EASY REACH. PLAN OF CARE CONTINUE.
[2022-02-06 08:00] VITALS: BP 120/46
[2022-02-06] MEDS: METOPROLOL SUCCINATE 25 MG TAB.SR.24H PO SCH (09:00)
[2022-02-06] MEDS: VALSARTAN PO SCH ×2 (09:18→16:03)
[2022-02-06] MEDS: TOPIRAMATE 25 MG TABLET PO SCH (09:18)
[2022-02-06] MEDS: BUPROPION XL 150 MG TAB.ER.24 PO SCH (09:18)
[2022-02-06] MEDS: ASPIRIN 325 MG TABLET PO SCH (09:18)
[2022-02-06] MEDS: LEVOTHYROXINE SODIUM 75 MCG TABLET PO SCH (09:18)
[2022-02-06] MEDS: GABAPENTIN 300 MG CAPSULE PO SCH ×3 (09:18→16:03)
[2022-02-06] MEDS: PANTOPRAZOLE 40 MG TABLET.DR PO SCH (09:18)
[2022-02-06] MEDS: SACUBITRIL PO SCH ×2 (09:18→16:03)
[2022-02-06] MEDS: DAPAGLIFLOZIN 10 MG PO SCH (09:19)
[2022-02-06] MEDS: oxyCODONE/APAP (5/325 MG) 1 UDTAB TABLET PO PRN ×2 (11:32→22:01)
--- NOTE | 2022-02-06 11:39 | NUR ---
AT RISK PARAPROFESSIONAL NOTES INFORMED DR. GILES OF THE HEART RATE'S IN 48-53'S, NO NEW ORDER. VERBAL NEW ORDER FOR COLACE AND MIRALAX GIVEN BY DR. GILES, NOTED AND CARRIED OUT. PLAN OF CARE CONTINUE.
[2022-02-06 12:00] VITALS: BP 118/56
[2022-02-06 16:00] VITALS: BP 106/64
[2022-02-06] MEDS: DOCUSATE SODIUM 100 MG CAPSULE PO SCH (16:03)
--- NOTE | 2022-02-06 18:21 | NUR ---
AGRICULTURAL ECONOMIST CLOSING NOTE RECEIVED PT IN BED AWAKE. ALERT AND ORIENTED X 4 AND ABLE TO MAKE NEEDS KNOWN. ON ROOM AIR, AND TOLERATING RA WELL. ON CHILD AND YOUTH PROGRAM ASSISTANT WITH CURRENT READING OF SINUS KALEB HR 58. LEFT HAND PIV NOTED PATENT AND INTACT, FLUSHES WELL. ISOLATION CONTINUED. SAFETY MEASURES MAINTAINED: BED LOCKED AND IN LOWEST POSITION,SIDE RAILS UP X 2. CALL LIGHT IN EASY REACH. WILL ENDORSE TO BRIDGE WORKER APPRENTICE NURSE FOR MAXIMILIANO. Addendum: 02/06/22 at 1926 by KALEB NEWBERRY RN PATIENT REFUSED X4 OF PERINEAL CARE .
--- NOTE | 2022-02-06 19:55 | NUR ---
LEANDRO/RN RECEIVED PATIENT LYING IN BED AWAKE, ALERT, ORIENT, NO DISTRESS NOTED, CALL LIGHT IN REACH, WILL MONITOR.
[2022-02-06 20:00] VITALS: BP 114/62
[2022-02-06] MEDS: TOPIRAMATE 100 MG TABLET PO SCH (21:14)
[2022-02-06] MEDS: ESCITALOPRAM OXALATE (10 MG) 10 MG TABLET PO SCH (21:14)
[2022-02-06] MEDS: SENNOSIDES/DOCUSATE SODIUM 1 TAB TABLET PO SCH (21:14)
[2022-02-06] MEDS: ESZOPICLONE PO SCH (21:15)
[2022-02-06] MEDS: ATORVASTATIN 40 MG TABLET PO SCH (21:15)
[2022-02-06] MEDS: ENOXAPARIN SODIUM 40 MG/0.4 ML DISP.SYRIN SQ SCH (21:16)
[2022-02-07] VITALS: BP 118/70
--- NOTE | 2022-02-07 02:00 | NUR ---
noc rn note- non admin patient refused scheduled 2200 dose of Senokot, per patient she had 1 large bm today and an hour ago, soft and formed. to quote "I want to hold it off for now". med non-administered.
[2022-02-07 04:00] VITALS: BP 110/79
[2022-02-07] MEDS: oxyCODONE/APAP (5/325 MG) 1 UDTAB TABLET PO PRN ×2 (05:17→18:13)
[2022-02-07] MEDS: GUAIFENESIN/D-METHORPHAN HB 5 ML UDC PO PRN (05:19)
--- NOTE | 2022-02-07 06:31 | NUR ---
ELANDRO/RN PATIENT IS AWAKE AT THIS TIME, TALKING ON THE PHONE, NO DISTRESS NOTED, ALL NEEDS ATTENDED AT THIS TIME, WILL CONTINUE TO MONITOR.
--- NOTE | 2022-02-07 07:18 | NUR ---
OIL RIG DRILLER OPENING NOTES RECEIVED PATIENT IN BED ASLEEP BUT EASILY AWOKEN, AOX4, ABLE TO MAKE NEEDS KNOWN. ON ROOM AIR, WELL TOLERATED, NO SOB, NO S/S RESP DISTRESS. IV ACCESS ON LEFT HAND G 20 ON SALINE LOCK, PATENT AND INTACT. ENCOURAGED TO DO DEEP BREATHING EXERCISES. ISOLATION PRECAUTION OBSERVED AT ALL TIMES. SAFETY MEASURES IN PLACED: BED LOCKED AND IN LOWEST POSITION. CALL LIGHT WITHIN EASY REACH. IN STABLE CONDITION. WILL CONTINUE WITH PLAN OF CARE.
[2022-02-07] MEDS: PANTOPRAZOLE 40 MG TABLET.DR PO SCH (07:51)
[2022-02-07] MEDS: LEVOTHYROXINE SODIUM 75 MCG TABLET PO SCH (07:51)
[2022-02-07 08:00] VITALS: BP 109/62
[2022-02-07] MEDS: METOPROLOL SUCCINATE 25 MG TAB.SR.24H PO SCH (09:36)
[2022-02-07] MEDS: TOPIRAMATE 25 MG TABLET PO SCH (09:36)
[2022-02-07] MEDS: GABAPENTIN 300 MG CAPSULE PO SCH ×3 (09:37→17:49)
[2022-02-07] MEDS: BUPROPION XL 150 MG TAB.ER.24 PO SCH (09:37)
[2022-02-07] MEDS: DOCUSATE SODIUM 100 MG CAPSULE PO SCH ×2 (09:37→17:49)
[2022-02-07] MEDS: ASPIRIN 325 MG TABLET PO SCH (09:37)
[2022-02-07] MEDS: POLYETHYLENE GLYCOL 3350 17 GM POWD.PACK PO SCH (09:37)
[2022-02-07] MEDS: SACUBITRIL PO SCH ×2 (09:38→17:49)
[2022-02-07] MEDS: VALSARTAN PO SCH ×2 (09:38→17:49)
[2022-02-07] MEDS: DAPAGLIFLOZIN 10 MG PO SCH (09:40)
--- NOTE | 2022-02-07 09:50 | NUR ---
ASSEMBLER HYDRAULIC BACKHOE NOTE SEEN BY HOSPITALIST TISHA. IN STABLE CONDITION. STILL AWAITING PLACEMENT.
[2022-02-07 12:00] VITALS: BP 118/60
[2022-02-07] MEDS: BUPRENORPHINE TP SCH (12:00)
--- NOTE | 2022-02-07 15:35 | NUR ---
SCIENCE SPECIALIST NOTE SPOKE WITH WAQAR CAAL IF THE HAVE AN EXTRA PATCH OF BUPRENORPHRINE BECAUSE OUR PHARMACY DOES NOT CARRY THE MEDICATION. SHE SAID SHE WILL CHECK AND CALL BACK. PATIENT UPDATED. IN STABLE CONDITION. COMFORT MEASURE PROVIDED.
[2022-02-07 16:00] VITALS: BP 108/54
--- NOTE | 2022-02-07 18:26 | NUR ---
FOURTH HAND NOTE DIANA CAAL CALLED BACK AND SAID THERE ARE 2 MORE PATCHES AVAILABLE. ICALLED DAUGHTER SARAH AND SHE WILL DYE COLORIST DYER THE PATCH AND BRING IT HERE TOMORROW. ENDORSED ACCORDINGLY.
--- NOTE | 2022-02-07 18:55 | NUR ---
ORTHOPEDIC CAST SPECIALIST CLOSING NOTES PATIENT IN AWAKE, AOX4, ABLE TO MAKE NEEDS KNOWN. ON ROOM AIR, WELL TOLERATED, NO SOB, NO S/S RESP DISTRESS. IV ACCESS ON LEFT HAND G 20 ON SALINE LOCK, PATENT AND INTACT. ENCOURAGED TO DO DEEP BREATHING EXERCISES. ISOLATION PRECAUTION OBSERVED AT ALL TIMES. SAFETY MEASURES IN PLACED: BED LOCKED AND IN LOWEST POSITION. CALL LIGHT WITHIN EASY REACH. IN STABLE CONDITION. PERCOCET GIVEN FOR GENERALIZED AIN OF 8/10. ENDORSED TO NEXT SHIFT FOR CONTINUITY OF CARE.
--- NOTE | 2022-02-07 19:49 | NUR ---
noc rn opening note received patient in bed. a/ox4. no s/s of apparent distress in room air. still c/o 09/16 pain generalized. reading sb on the tele monitor reading 53 bpm. purewick noted in place draining clear, gisella urine. no fluids running at this time. call light within reach. bed on high position-- per patient she likes it that way, but bed is locked. will continue with plan of care for patient.
[2022-02-07 20:00] VITALS: BP 105/49
[2022-02-07] MEDS: ENOXAPARIN SODIUM 40 MG/0.4 ML DISP.SYRIN SQ SCH (21:16)
[2022-02-07] MEDS: SENNOSIDES/DOCUSATE SODIUM 1 TAB TABLET PO SCH (22:00)
[2022-02-07] MEDS: ESZOPICLONE PO SCH (22:00)
[2022-02-07] MEDS: ATORVASTATIN 40 MG TABLET PO SCH (22:04)
[2022-02-07] MEDS: ESCITALOPRAM OXALATE (10 MG) 10 MG TABLET PO SCH (22:05)
[2022-02-07] MEDS: TEMAZEPAM 7.5 MG CAPSULE PO PRN (22:05)
[2022-02-07] MEDS: TOPIRAMATE 100 MG TABLET PO SCH (22:05)
[2022-02-08] VITALS: BP 112/50
[2022-02-08] MEDS: oxyCODONE/APAP (5/325 MG) 1 UDTAB TABLET PO PRN ×2 (00:18→21:32)
--- NOTE | 2022-02-08 00:18 | NUR ---
noc rn note patient woke up at this time with facial grimacing, c/o 9/10 pain on her lt. foot. given percocet 5 (2 TAB) as ordered PRN. will re-assess.
[2022-02-08 04:00] VITALS: BP 101/52
--- NOTE | 2022-02-08 06:58 | NUR ---
noc rn closing note patient in bed with eyes closed, easy to arouse. no s/s of apparent distress on room air. patient has been on and off with her sleep. no c/o pain right now. reading sb throughout shift in the 50's. no fluids running at this time. all needs attended. all scheduled medications administered, except for senokot. call light within reach. safety kept in place the whole shift. will endorse to morning shift rn for continuity of patient care.
--- NOTE | 2022-02-08 07:45 | NUR ---
CLINICIAN ONCOLOGY OPENING NOTE Patient in bed, asleep. A?O x 4. On room air, breathing evenly and unlabored. No SOB or s/s of distress noted. IV access on LEft hand #22 SL, intact and patent. Purewick in place draining to a yellow colored urine. On tele monitoring showing SB, HR on the 50's. Safety precautions in place: bed in low, locked position; siderails up x 2; call light within reach. Will continue to monitor.
[2022-02-08 08:00] VITALS: BP 117/76
[2022-02-08] MEDS: ASPIRIN 325 MG TABLET PO SCH (08:24)
[2022-02-08] MEDS: DAPAGLIFLOZIN 10 MG PO SCH (08:24)
[2022-02-08] MEDS: LEVOTHYROXINE SODIUM 75 MCG TABLET PO SCH (08:24)
[2022-02-08] MEDS: DOCUSATE SODIUM 100 MG CAPSULE PO SCH ×2 (08:24→16:36)
[2022-02-08] MEDS: PANTOPRAZOLE 40 MG TABLET.DR PO SCH (08:24)
[2022-02-08] MEDS: BUPROPION XL 150 MG TAB.ER.24 PO SCH (08:24)
[2022-02-08] MEDS: SACUBITRIL PO SCH ×2 (08:24→16:36)
[2022-02-08] MEDS: VALSARTAN PO SCH ×2 (08:24→16:36)
[2022-02-08] MEDS: POLYETHYLENE GLYCOL 3350 17 GM POWD.PACK PO SCH (08:24)
[2022-02-08] MEDS: GABAPENTIN 300 MG CAPSULE PO SCH ×3 (08:24→16:36)
[2022-02-08] MEDS: TOPIRAMATE 25 MG TABLET PO SCH (08:25)
[2022-02-08] MEDS: METOPROLOL SUCCINATE 25 MG TAB.SR.24H PO SCH (08:25)
[2022-02-08 12:00] VITALS: BP 111/50
[2022-02-08] MEDS: BUPRENORPHINE TP SCH (15:10)
[2022-02-08 16:00] VITALS: BP 103/54
--- NOTE | 2022-02-08 19:18 | NUR ---
MOLASSES COLORING OPERATOR CLOSING NOTE Patient in bed, resting. A/O x 4, able to make needs known. On room air, breathing evenly and unlabored. No SOB or s/s of distress noted. IV access on Left hand #22 SL, intact and patent. Purewick changed, draining to a yellow colored urine with an output of 800 cc. On tele monitoring showing SB, HR on the 50's. All needs attended to. Due meds given. Surgical dressing on LLe c/d/i. Cam boot in place on Right foot. Safety precautions in place: bed in low, locked position; siderails up x 2; call light within reach. Will endorse to night shift manager nure for MAXIMILIANO.
[2022-02-08 20:00] VITALS: BP 113/51
--- NOTE | 2022-02-08 20:05 | NUR ---
RN OPENING NOTES RECEIVED PT IN BED, AWAKE, WATCHING TV. AOx4, ABLE TO MAKE NEEDS KNOWN. ON RA AND TOLERATING WELL. NO SOB NOTED. NO S/SX OF RESPIRATORY DISTRESS NOTED. TELE MONITOR DETECTS SB WITH RATE OF 50s. IV ACCESS IN L HAND #22G. IV IS INTACT, PATENT, AND FLUSHING WELL. SAFETY PRECAUTIONS IN PLACE: BED IN LOWEST, LOCKED POSITION, SIDERAILS UPx2, AND BRAKES ON. TABLE AND CALL LIGHT WITHIN REACH. ALL NEEDS MET AT THIS TIME.
[2022-02-08] MEDS: TOPIRAMATE 100 MG TABLET PO SCH (21:32)
[2022-02-08] MEDS: SENNOSIDES/DOCUSATE SODIUM 1 TAB TABLET PO SCH (21:32)
[2022-02-08] MEDS: ATORVASTATIN 40 MG TABLET PO SCH (21:32)
[2022-02-08] MEDS: ESCITALOPRAM OXALATE (10 MG) 10 MG TABLET PO SCH (21:32)
--- NOTE | 2022-02-08 21:32 | NUR ---
RN NOTES ADMINISTERED PERCOCET PER PT REQUEST. VS WNL
[2022-02-08] MEDS: ESZOPICLONE PO SCH (21:33)
[2022-02-08] MEDS: ENOXAPARIN SODIUM 40 MG/0.4 ML DISP.SYRIN SQ SCH (21:34)
[2022-02-08] MEDS: TEMAZEPAM 7.5 MG CAPSULE PO PRN (22:44)
--- NOTE | 2022-02-08 22:44 | NUR ---
RN NOTES ADMINISTERED TEMAZEPAM PER PT REQUEST.
[2022-02-09] VITALS: BP 114/58
[2022-02-09] MEDS: oxyCODONE/APAP (5/325 MG) 1 UDTAB TABLET PO PRN ×3 (02:15→21:54)
--- NOTE | 2022-02-09 02:15 | NUR ---
RN NOTES ADMINISTERED PERCOCET PER PT REQUEST. VS WNL
[2022-02-09 04:00] VITALS: BP 110/54
--- NOTE | 2022-02-09 06:38 | NUR ---
RN CLOSING NOTES PT IN BED, ASLEEP, AWAKENS TO VERBAL STIMULI. AOx4, ABLE TO MAKE NEEDS KNOWN. ON RA AND TOLERATING WELL. NO SOB NOTED. NO S/SX OF RESPIRATORY DISTRESS NOTED. TELE MONITOR DETECTS SB AND SR WITH RATE OF 50s - 70s. IV ACCESS IN L HAND #22G. IV IS INTACT, PATENT, AND FLUSHING WELL. ALL ORDERS CARRIED OUT. ALL NEEDS MET. PT KEPT CLEAN AND DRY. PAIN TREATED THROUGHOUT SHIFT. SAFETY PRECAUTIONS IN PLACE: BED IN LOWEST, LOCKED POSITION, SIDERAILS UPx2, AND BRAKES ON. TABLE AND CALL LIGHT WITHIN REACH. WILL ENDORSE TO ONCOMING SHIFT FOR MAXIMILIANO.
--- NOTE | 2022-02-09 07:26 | NUR ---
RECREATION AIDE OPENING NOTE RECEIVED PT ASLEEP IN BED, EASILY AROUSED. PT A/O X4, ABLE TO MAKE NEEDS KNOWN. ON ROOM AIR, TOLERATED WELL. NO SOB NOTED. NOT IN ANY SIGN OF RESPIRATORY DISTRESS. PT ON CARDIAC TELE MONITOR WITH CURRENT READING SINUS KALEB, HR 51. NO C/O CARDIAC DISTRESS VOICED OUT AT THIS TIME. IV ACCESS ON L HAND G#22 INTACT AND PATENT. SAFETY MEASURES IN PLACE: BED IN LOWEST AND LOCKED POSITION, SIDE RAILS UPX2, AND CALL LIGHT WITHIN REACH. WILL CONTINUE TO MONITOR PT.
--- NOTE | 2022-02-09 07:30 | NUR ---
DATA DESIGNER OPENING NOTES PT IN BED, AWAKE, ALERT AND ORIENTED X4. VERBALLY RESPONSIVE. ABLE TO MAKE NEEDS KNOWN. ON RA, NO SOB, NO RESP DISTRESS NOTED. L HAND IV ACCESS INTACT AND PATENT. COVID19 ISOLATION OBSERVED AT ALL TIMES. SAFETY MEASURES IMPLEMENTED: BED LOCKED AND AT LOWEST POSITION. CALL LIGHT WITHIN EASY REACH. WILL CONT. POC. Addendum: 02/09/22 at 2045 by JEANNIE ROTH RN DATA DESIGNER OPENING NOTES FOR 02/09/22 193
[2022-02-09 08:00] VITALS: BP 103/50
[2022-02-09] MEDS: PANTOPRAZOLE 40 MG TABLET.DR PO SCH (08:11)
[2022-02-09] MEDS: LEVOTHYROXINE SODIUM 75 MCG TABLET PO SCH (08:11)
[2022-02-09] MEDS: GABAPENTIN 300 MG CAPSULE PO SCH ×3 (08:36→16:53)
[2022-02-09] MEDS: POLYETHYLENE GLYCOL 3350 17 GM POWD.PACK PO SCH ×2 (08:36→08:49)
[2022-02-09] MEDS: TOPIRAMATE 25 MG TABLET PO SCH (08:36)
[2022-02-09] MEDS: DOCUSATE SODIUM 100 MG CAPSULE PO SCH ×2 (08:36→16:53)
[2022-02-09] MEDS: BUPROPION XL 150 MG TAB.ER.24 PO SCH (08:37)
[2022-02-09] MEDS: ASPIRIN 325 MG TABLET PO SCH (08:37)
[2022-02-09] MEDS: VALSARTAN PO SCH ×2 (08:39→16:53)
[2022-02-09] MEDS: SACUBITRIL PO SCH ×2 (08:39→16:53)
[2022-02-09] MEDS: DAPAGLIFLOZIN 10 MG PO SCH (08:39)
[2022-02-09] MEDS: METOPROLOL SUCCINATE 25 MG TAB.SR.24H PO SCH (08:39)
--- NOTE | 2022-02-09 08:43 | NUR ---
RN NOTE PT REFUSED HER MIRALAX MEDICATION SCHEDULED AT 0900. EXPLAINED RISK AND BENEFITS, STILL REFUSED.
[2022-02-09 12:00] VITALS: BP 102/57
[2022-02-09 16:00] VITALS: BP 123/54
--- NOTE | 2022-02-09 17:50 | NUR ---
RN NOTE PT C/O GENERALIZED BODY PAIN WITH PAIN SCALE LEVEL OF 8/10 AND REQUESTED FOR PAIN MEDICATION. PERCOCET 5/325MG 2 TABS PO GIVEN ORDERED PRN Q4H FOR SEVERE PAIN. WILL MONITOR AND REASSESS PT.
--- NOTE | 2022-02-09 18:48 | NUR ---
PHONE SCREENER CLOSING NOTE PT AWAKE AND RESTING IN BED. PT A/O X4, ABLE TO MAKE NEEDS KNOWN. ON ROOM AIR, TOLERATED WELL. NO SOB NOTED. NOT IN ANY SIGN OF RESPIRATORY DISTRESS. PT ON CARDIAC TELE MONITOR WITH CURRENT READING SINUS KALEB, HR 52. NO C/O CARDIAC DISTRESS VOICED OUT AT THIS TIME. IV ACCESS ON L HAND G#22 INTACT AND PATENT. ALL NEEDS ATTENDED. KEPT CLEAN AND COMFORTABLE AT ALL TIMES. SAFETY MEASURES IN PLACE: BED IN LOWEST AND LOCKED POSITION, SIDE RAILS UPX2, AND CALL LIGHT WITHIN REACH. WILL ENDORSE TO TENANT COORDINATOR NURSE FOR MAXIMILIANO.
--- NOTE | 2022-02-09 19:30 | NUR ---
PROVIDER ENROLLMENT SPECIALIST OPENING NOTES PT IN BED, AWAKE, ALERT AND ORIENTED X4. VERBALLY RESPONSIVE. ABLE TO MAKE NEEDS KNOWN. ON RA, NO SOB, NO RESP DISTRESS NOTED. L HAND IV ACCESS INTACT AND PATENT. COVID19 ISOLATION OBSERVED AT ALL TIMES. SAFETY MEASURES IMPLEMENTED: BED LOCKED AND AT LOWEST POSITION. CALL LIGHT WITHIN EASY REACH. WILL CONT. POC.
[2022-02-09 20:00] VITALS: BP 124/54
[2022-02-09] MEDS: SENNOSIDES/DOCUSATE SODIUM 1 TAB TABLET PO SCH (21:13)
[2022-02-09] MEDS: TOPIRAMATE 100 MG TABLET PO SCH (21:14)
[2022-02-09] MEDS: ATORVASTATIN 40 MG TABLET PO SCH (21:14)
[2022-02-09] MEDS: ESCITALOPRAM OXALATE (10 MG) 10 MG TABLET PO SCH (21:14)
[2022-02-09] MEDS: ENOXAPARIN SODIUM 40 MG/0.4 ML DISP.SYRIN SQ SCH (21:15)
[2022-02-09] MEDS: ESZOPICLONE PO SCH (21:18)
--- NOTE | 2022-02-09 21:57 | NUR ---
SAILMAKER NOTES PT. C/O PAIN 8/10 GENERALIZED BODY PAIN, ADMINISTERED PERCOCET 5/325MG 2 TABS ORDERED PER PT'S REQUEST. VS STABLE, BP 124/54. WILL REASSES.
[2022-02-10] VITALS: BP 102/55
[2022-02-10 04:00] VITALS: BP 111/58
--- NOTE | 2022-02-10 06:20 | NUR ---
CLIENT RETENTION SPECIALIST CLOSING NOTES PT SLEEPING COMFORTABLY IN BED, EASILY AROUSABLE. BREATHING EVEN AND UNLABORED, ON ROOM AIR, NO SOB NOTED. NOS/S OF RESPIRATORY DISTRESS. PT ON CARDIAC TELE MONITOR WITH CURRENT READING SINUS KALEB, HR 53. IV ACCESS ON L HAND G#22 SALINE LOCK, INTACT AND FLUSHING WELL. ALL NEEDS ATTENDED. ALL DUE MEDICATIONS GIVEN ORDERED. KEPT CLEAN AND COMFORTABLE AT ALL TIMES. SAFETY MEASURES IN PLACE: BED LOCKED AND IN LOWEST POSITION, SIDE RAILS UPX2, AND CALL LIGHT WITHIN REACH. WILL ENDORSE TO AM SHIFT FOR MAXIMILIANO.
--- NOTE | 2022-02-10 07:25 | NUR ---
JIG GRINDER OPENING NOTES RECEIVED PT AWAKE, WATCHING TV COMFORTABLY WITH HOB BED ELEVATED, BREATHING EVEN AND UNLABORED, STABLE ON ROOM AIR, BREATHING EVEN AND UNLABORED. TELE MONITOR IS SHOWING SINUS BRADYCARDIA WITH 49 BPM. IV ACCESS ON L HAND G#22 SALINE LOCK, INTACT AND FLUSHING WELL. DENIES PAIN NOR DISCOMFORT AT THIS TIME. SAFETY MEASURES IN PLACE: BED LOCKED AND IN LOWEST POSITION, SIDE RAILS UPX2, AND CALL LIGHT AND TRAY TABLE WITHIN REACH. WILL CONTINUE TO MONITOR.
[2022-02-10 08:00] VITALS: BP 103/3
[2022-02-10] MEDS: PANTOPRAZOLE 40 MG TABLET.DR PO SCH (08:06)
[2022-02-10] MEDS: DOCUSATE SODIUM 100 MG CAPSULE PO SCH (08:07)
[2022-02-10] MEDS: LEVOTHYROXINE SODIUM 75 MCG TABLET PO SCH (08:07)
[2022-02-10] MEDS: POLYETHYLENE GLYCOL 3350 17 GM POWD.PACK PO SCH (08:07)
[2022-02-10] MEDS: METOPROLOL SUCCINATE 25 MG TAB.SR.24H PO SCH (08:09)
[2022-02-10] MEDS: VALSARTAN PO SCH (08:09)
[2022-02-10] MEDS: ASPIRIN 325 MG TABLET PO SCH (08:09)
[2022-02-10] MEDS: SACUBITRIL PO SCH (08:09)
[2022-02-10] MEDS: DAPAGLIFLOZIN 10 MG PO SCH (08:10)
[2022-02-10] MEDS: GABAPENTIN 300 MG CAPSULE PO SCH ×2 (08:10→12:35)
[2022-02-10] MEDS: TOPIRAMATE 25 MG TABLET PO SCH (08:10)
[2022-02-10] MEDS: BUPROPION XL 150 MG TAB.ER.24 PO SCH (08:11)
--- NOTE | 2022-02-10 09:30 | NUR ---
RN NOTES - PT ENCOUNTER PT POLA MENTIONED PATIENT IS NWB ON L LEG AND R LEG IS WEAK, PATIENT WAS SAFELY PLACED BACK TO BED.
[2022-02-10 12:00] VITALS: BP 115/53
[2022-02-10] MEDS: oxyCODONE/APAP (5/325 MG) 1 UDTAB TABLET PO PRN (13:28)
--- NOTE | 2022-02-10 14:42 | NUR ---
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 PT AOX4, ABLE TO MAKE NEEDS KNOWN, ON ROOM AIR STABLE WITHOUT ANY SHORTNESS OF BREATH, NOT IN ANY FORM OF DISTRESS. LAST TELE READING WAS SINUS BRADYCARDIA WITH 55 BPM. VITAL SIGNS TAKEN AND RECORDED, PT'S SKIN IS INTACT. PICTURES TAKEN. DENIES PAIN NOR DISCOMFORT AT THIS MOMENT LAST PAIN MEDICATION OF PERCOCET 10 MG WAS GIVEN AROUND 1330. ALL BELONGINGS ACCOUNTED FOR, FORMS SIGNED, HOME MEDICATION RETRIEVED FROM PHARMACY. DISCHARGE INSTRUCTIONS GIVEN TO [facility] RN, PT IS GOING TO ROOM 13B. MEDICATION RECONCILIATION GIVEN WELL. IV ACCESS ON L HAND G#22 REMOVED, NO BLEEDING NOTED, APPLIED PRESSURE GAUZE. PT LEFT THE UNIT AROUND 1435 ACCOMPANIED BY 2 REPAIR TECH. MD AND CHARGE NURSE AWARE.
== END 2022-02-10 18:58 | DRG 177 ==
LOC: ER 18:03 → TELE1 21:30
PROVIDERS: ADMIT Nurse Practitioner Acute Care; ATTEND Internal Medicine
DX: U07.1 COVID-19 (principal); N17.0 Acute kidney failure with tubular necrosis; E44.1 Mild protein-calorie malnutrition; C92.01 Acute myeloblastic leukemia, in remission; D68.59 Other primary thrombophilia; I50.32 Chronic diastolic (congestive) heart failure; E86.1 Hypovolemia; D63.8 Anemia in other chronic diseases classified elsewhere; E03.9 Hypothyroidism, unspecified; E78.5 Hyperlipidemia, unspecified; E86.0 Dehydration; G89.4 Chronic pain syndrome; I11.0 Hypertensive heart disease with heart failure; S92.353D Displaced fracture of fifth metatarsal bone, unspecified foot, subsequent encounter for fracture with routine healing; X58.XXXD Exposure to other specified factors, subsequent encounter; E66.01 Morbid (severe) obesity due to excess calories; E88.09 Other disorders of plasma-protein metabolism, not elsewhere classified; J45.909 Unspecified asthma, uncomplicated; M79.7 Fibromyalgia; Z79.82 Long term (current) use of aspirin; Z79.899 Other long term (current) drug therapy; Z85.118 Personal history of other malignant neoplasm of bronchus and lung; Z86.73 Personal history of transient ischemic attack (TIA), and cerebral infarction without residual deficits; G47.33 Obstructive sleep apnea (adult) (pediatric); Z87.891 Personal history of nicotine dependence; Z90.2 Acquired absence of lung [part of]; Z91.81 History of falling; F32.9 Major depressive disorder, single episode, unspecified; F41.9 Anxiety disorder, unspecified; Z91.030 Bee allergy status
CPT/HCPCS: 36415; 71045-TC; 80048-TC; 80076-TC; 83735-TC; 84100-TC; 84484-TC; 85025-TC; 85378-TC; 86140-TC; 87081-TC; 97530-TC; C9803; G0378; J1650

== ENCOUNTER 2024-07-21 09:49 | Inpatient (IN) | payer BC ==
[~2024-07-21] VITALS: Ht 165.1 cm; Wt 97.7 kg
[~2024-07-21 09:49] MED LIST changes: +ASPI-1169 PO; -ASPI-992 PO; +MENT3.5O TP; -OXYC5CAP18 PO; +OXYC5TAB3 PO
[2024-07-21] MEDS: IV NS 0.9% 500 ML BAG IV ONE (10:00)
[2024-07-21 10:22] LABS: BASOPHILS % (AUTO) 0.8 % (0.0-2.0); EOSINOPHILS % (AUTO) 0.7 % (0.0-6.0); HEMATOCRIT 38 % (33-45); HEMOGLOBIN 12.1 g/dL (11.5-14.8); LYMPHOCYTES # (AUTO) 1.1 K/uL (0.8-4.8); MEAN CORPUSCULAR HEMOGLOBIN 32 PG (26.0-33.0); MEAN CORPUSCULAR HGB CONC 32 g/dl (31.0-36.0); MEAN CORPUSCULAR VOLUME 98 fL (82-100); MONOCYTES # (AUTO) 0.8 K/uL (0.1-1.30); MONOCYTES % (AUTO) 18.4 % (2.0-12.0); NEUTROPHILS # (AUTO) 2.3 K/uL (1.8-8.9); NEUTROPHILS % (AUTO) 55.1 % (43.0-81.0); PLATELET COUNT (AUTO) 74 K/uL (150-450); RED BLOOD CELL COUNT(AUTO) 3.81 MIL/uL (4.0-5.2); RED CELL DISTRIBUTION WIDTH 15.7 % (11.5-15.0); WHITE BLOOD COUNT (AUTO) 4.2 K/uL (4.3-11.0)
[2024-07-21 10:35] LABS: INR 1.03 (0.91-1.10); PARTIAL THROMBOPLASTIN TIME 24.5 SEC (24.3-34.3); PROTHROMBIN TIME 10.9 SECS (9.2-11.1)
[2024-07-21 10:37] LABS: CALCIUM, SERUM 8.7 mg/dL (8.5-10.1); CARBON DIOXIDE 26 mmol/L (21-32); CHLORIDE 110 mmol/L (98-107); CREATININE 0.8 mg/dL (0.6-1.3); GLUCOSE 102 mg/dL (74-106); POTASSIUM 4.6 mmol/L (3.5-5.1); SODIUM SERUM 145 mmol/L (136-145); UREA NITROGEN, BLOOD 33 mg/dL (7-18)
[2024-07-21 10:44] LABS: ALANINE AMINOTRANSFERASE 22 U/L (12-78); ALBUMIN 3.9 g/dL (3.4-5.0); ALKALINE PHOSPHATASE 74 U/L (46-116); ASPARTATE AMINOTRANSFERASE 20 U/L (15-37); BILIRUBIN,DIRECT 0.1 mg/dL (0.0-0.2); BILIRUBIN,TOTAL 0.5 mg/dL (0.2-1.0); TOTAL PROTEIN, SERUM 6.7 g/dL (6.4-8.2)
[2024-07-21 10:47] LABS: MAGNESIUM 2.4 mg/dL (1.8-2.4)
[2024-07-21 10:51] LABS: LACTIC ACID 1.3 mmol/L (0.4-2.0)
[2024-07-21] MEDS ORDERED: ONDANSETRON HCL/PF 4 MG/2 ML VIAL IVP PRN (11:00)
[2024-07-21] MEDS ORDERED: ACETAMINOPHEN 325 MG TABLET PO PRN (11:00)
[2024-07-21] MEDS ORDERED: MAG HYDROX/AL HYDROX/SIMETH 30 ML UDC PO PRN (11:00)
[2024-07-21] MEDS: ENOXAPARIN SODIUM 40 MG/0.4 ML DISP.SYRIN SQ SCH (11:00)
[2024-07-21 11:29] LABS: LYMPHOCYTES % (MANUAL) 21 % (16-48); MONOCYTES % (MANUAL) 17 % (0-11.0); NEUTROPHILS % (MANUAL) 62 (42-76); PLATELET ESTIMATE DECREASED
[2024-07-21 11:30] LABS: ANISOCYTOSIS 1+
[2024-07-21] MEDS ORDERED: ALBUTEROL FS 2.5 MG/3 ML VIAL.NEB NEB PRN (11:30)
[2024-07-21 11:49] LABS: THYROID STIMULATING HORMONE 0.07 uIU/mL (0.358-3.74)
[2024-07-21] MEDS ORDERED: ATROPINE SULFATE 1 MG/10 ML DISP.SYRIN ONE (12:03)
[2024-07-21] MEDS: ATROPINE SULFATE 1 MG/10 ML DISP.SYRIN IV ONE (12:30)
[2024-07-21 13:00] VITALS: BP 92/54; TEMP 97.5; O2SAT 99
[2024-07-21] MEDS: IV NS 0.9% 1,000 ML IV PRN (13:03)
[2024-07-21] MEDS: GABAPENTIN 300 MG CAPSULE PO SCH (13:54)
[2024-07-21 16:04] VITALS: BP 127/63; TEMP 97.6; O2SAT 100
[2024-07-21] MEDS: SACUBITRIL/VALSARTAN 24/26MG TABLET PO SCH (16:59)
[2024-07-21 20:00] VITALS: BP 106/41; TEMP 97.9; O2SAT 96
[2024-07-21 20:21] LABS: APPEARANCE,URINE CLEAR (CLEAR); BILIRUBIN,URINE NEGATIVE (NEGATIVE); BLOOD, URINE NEGATIVE Ery/uL (NEGATIVE); COLOR,URINE YELLOW (YELLOW); KETONES,URINE NEGATIVE (NEGATIVE); LEUKOCYTE ESTERASE ,URINE NEGATIVE (NEGATIVE); NITRITE, URINE NEGATIVE (NEGATIVE); PH,URINE 5.5 (5.0-8.0); PROTEIN,URINE NEGATIVE (NEGATIVE); UGLUCOSE 3+ mg/dL (NEGATIVE); UROBILINOGEN,URINE 0.2 EU/dL (0.2)
[2024-07-21 20:45] LABS: ADD URINE CULTURE NO; BACTERIA,URINE Rare /HPF (None Seen); RBC,URINE 0-2 /HPF (0-2); SQUAMOUS EPITHELIAL CELL,UR 0-2 /HPF (None Seen); WBC,URINE 0-2 /HPF (0-3)
[2024-07-21] MEDS: TOPIRAMATE 100 MG TABLET PO SCH (21:42)
[2024-07-21] MEDS: ATORVASTATIN 40 MG TABLET PO SCH (21:42)
[2024-07-21] MEDS: ALPRAZOLAM 1 MG TABLET PO PRN (22:59)
[2024-07-22] VITALS: BP 116/40; TEMP 97.9; O2SAT 95
[2024-07-22 04:00] VITALS: BP 135/48; TEMP 97.5; O2SAT 95
[2024-07-22] MEDS: LEVOTHYROXINE SODIUM 75 MCG TABLET PO SCH (07:46)
[2024-07-22 08:05] VITALS: BP 143/60; TEMP 97.9; O2SAT 98
[2024-07-22] MEDS: DAPAGLIFLOZIN PROPANEDIOL 10 MG TABLET PO SCH (08:32)
[2024-07-22] MEDS: ESCITALOPRAM OXALATE (10 MG) 10 MG TABLET PO SCH (08:33)
[2024-07-22] MEDS: BUPROPION XL 150 MG TAB.ER.24 PO SCH (08:33)
[2024-07-22] MEDS: TOPIRAMATE 25 MG TABLET PO SCH (08:33)
[2024-07-22] MEDS: ASPIRIN 81 MG TAB.CHEW PO SCH (08:34)
[2024-07-22 10:17] LABS: BASOPHILS % (AUTO) 0.7 % (0.0-2.0); EOSINOPHILS # (AUTO) 0.1 K/uL (0.0-0.7); EOSINOPHILS % (AUTO) 1.9 % (0.0-6.0); HEMATOCRIT 37 % (33-45); HEMOGLOBIN 11.8 g/dL (11.5-14.8); LYMPHOCYTES # (AUTO) 1.2 K/uL (0.8-4.8); LYMPHOCYTES % (AUTO) 35.2 % (20.0-44.0); MEAN CORPUSCULAR HEMOGLOBIN 32 PG (26.0-33.0); MEAN CORPUSCULAR HGB CONC 32 g/dl (31.0-36.0); MEAN CORPUSCULAR VOLUME 100 fL (82-100); NEUTROPHILS # (AUTO) 1.1 K/uL (1.8-8.9); NEUTROPHILS % (AUTO) 32.2 % (43.0-81.0); PLATELET COUNT (AUTO) 60 K/uL (150-450); RED BLOOD CELL COUNT(AUTO) 3.72 MIL/uL (4.0-5.2); RED CELL DISTRIBUTION WIDTH 16.1 % (11.5-15.0); WHITE BLOOD COUNT (AUTO) 3.3 K/uL (4.3-11.0)
[2024-07-22 10:31] LABS: CALCIUM, SERUM 8.6 mg/dL (8.5-10.1); CREATININE 0.9 mg/dL (0.6-1.3); MAGNESIUM 2.5 mg/dL (1.8-2.4); PHOSPHORUS 4.2 mg/dL (2.5-4.9); POTASSIUM 4.5 mmol/L (3.5-5.1)
[2024-07-22] MEDS ORDERED: LEVO125T8 PO (11:23)
[2024-07-22 12:00] LABS: NEUTROPHILS % (MANUAL) 35 (42-76)
[2024-07-22 12:01] LABS: LYMPHOCYTES % (MANUAL) 41 % (16-48); MONOCYTES % (MANUAL) 24 % (0-11.0); PLATELET ESTIMATE DECREASED
[2024-07-22 12:02] LABS: ANISOCYTOSIS 1+
[2024-07-22 12:05] VITALS: BP 147/58; TEMP 98.2; O2SAT 98
[2024-07-22 16:05] VITALS: BP 144/67; TEMP 97.7; O2SAT 98
[2024-07-22 20:00] VITALS: BP 134/57; TEMP 97.7; O2SAT 96
[2024-07-22] MEDS ORDERED: Medication Not On Formulary EA (Oxycodone Hcl/Acetaminophen (Oxycodone-Apap 10-325 Mg Ta PO PRN (23:30)
[2024-07-23] VITALS: BP 138/58; TEMP 97.9; O2SAT 95
[2024-07-23] MEDS ORDERED: oxyCODONE/APAP (5/325 MG) 1 UDTAB TABLET PO PRN (01:00)
[2024-07-23] MEDS: oxyCODONE/APAP (5/325 MG) 1 UDTAB TABLET PO PRN (01:02)
[2024-07-23 04:00] VITALS: BP 119/50; TEMP 97.7; O2SAT 95
[2024-07-23 08:00] VITALS: BP 123/55; TEMP 97.9; O2SAT 95
[2024-07-23 12:00] VITALS: BP 123/45; TEMP 97.9; O2SAT 95
== END 2024-07-23 13:24 | disposition home or self-care (01) | DRG 641 ==
LOC: ER 09:54 → TELE1 12:12
PROVIDERS: ADMIT Nurse Practitioner Acute Care; ATTEND Nurse Practitioner Acute Care
DX: E86.0 Dehydration (principal); D61.818 Other pancytopenia; D68.69 Other thrombophilia; C95.91 Leukemia, unspecified, in remission; M79.7 Fibromyalgia; J45.909 Unspecified asthma, uncomplicated; Z86.73 Personal history of transient ischemic attack (TIA), and cerebral infarction without residual deficits; Z87.891 Personal history of nicotine dependence; I11.0 Hypertensive heart disease with heart failure; I50.9 Heart failure, unspecified; E03.9 Hypothyroidism, unspecified; E78.5 Hyperlipidemia, unspecified; Z79.84 Long term (current) use of oral hypoglycemic drugs; D63.8 Anemia in other chronic diseases classified elsewhere; E66.01 Morbid (severe) obesity due to excess calories; Z99.3 Dependence on wheelchair; Z85.118 Personal history of other malignant neoplasm of bronchus and lung; F41.9 Anxiety disorder, unspecified; F32.9 Major depressive disorder, single episode, unspecified; R00.1 Bradycardia, unspecified; I95.89 Other hypotension
CPT/HCPCS: 36415; 71045-TC; 80048-TC; 80076-TC; 81001; 83605-TC; 83735-TC; 83880; 84100-TC; 84443-TC; 84484-TC; 85025-TC; 85730-TC; 87040-TC; 87086-TC; 93307-TC; 97110-TC; 97116-TC; 97530-TC; G0378; J0461; J1650; J7030; J7040